=== PATIENT | male | born 1980 | race Two or more races ===

== ENCOUNTER 2021-08-07 23:13 | Inpatient (IN) | payer OTHER ==
[2021-08-08 00:30] LABS: #Eosinphils 0.1 10x3/uL (0.0-0.5); #Monocytes 0.5 10x3/uL (0.0-1.1); #Neutrophils 4.1 10x3/uL (1.5-8.4); %Basophils 0.5 % (0.0-2.0); %Eosinophils 2.1 % (0.0-6.0); %Lymphocytes 23.3 % (18.0-47.0); %Monocytes 7.6 % (0.0-10.0); %Neutrophils 65.2 % (40.0-75.0); Hemoglobin 12.6 g/dL (13.5-17.5); Mean Corpuscular HGB CONC 33.3 g/dL (32.0-36.0); Mean Corpuscular Hemoglobin 26.4 pg (27.0-33.0); Mean Corpuscular Volume 79.1 fl (81.2-95.1); Mean Platelet Volume 10.7 fl (7.4-10.4); Platelet Count 198 10x3/uL (150-450); Red Blood Cell (RBC) Count 4.78 10x6/uL (4.32-5.72); White Blood Cell (WBC) Count 6.3 10x3/uL (3.5-10.5)
[2021-08-08 00:43] LABS: ALT (SGPT) 11 U/L (8-55); AST (SGOT) 11 U/L (5-34); Albumin 3.7 g/dL (3.5-5.0); Alkaline Phosphatase 94 U/L (40-110); Anion Gap 17 mmol/L (10-20); BUN (Urea Nitrogen) 18 mg/dL (8.9-20.6); Bilirubin, Total 0.5 mg/dL (0.2-1.2); Calc. Creatinine Clearance 0 mL/min (70-130); Calcium 9.7 mg/dL (7.8-10.44); Carbon Dioxide 25 mmol/L (22-29); Chloride 97 mmol/L (98-107); Globulin 3.8 g/dL (2.4-3.5); Glucose 186 mg/dL (70-105); Lipase 22 U/L (8-78); Potassium 3.8 mmol/L (3.5-5.1); Protein, Total 7.5 g/dL (6.0-8.3); Sodium 135 mmol/L (136-145)
[2021-08-08 01:14] LABS: CKMB 9.8 ng/mL (0-6.6)
[2021-08-08] MEDS ORDERED: Labetalol HCl 100 MG/20 ML VIAL ONE (01:26)
[2021-08-08] MEDS ORDERED: Nitroglycerin 2% Ointment 1 INCH/1 GM Packet ONE (02:07)
[2021-08-08] MEDS ORDERED: cefTRIAXone\\ROCEPHIN 1 GM VIAL ONE (02:07)
[2021-08-08] MEDS ORDERED: Azithromycin 500 MG VIAL ONE (02:07)
[2021-08-08] MEDS ORDERED: Guaifenesin DM 100-10/5 ML UDCUP PO PRN (02:41)
[2021-08-08] MEDS ORDERED: Calcium Carbonate 500 MG ChewTAB PO PRN (02:41)
[2021-08-08] MEDS ORDERED: Senokot S 8.6-50 MG TAB PO PRN (02:41)
[2021-08-08] MEDS ORDERED: Ondansetron PF 4 MG/2 ML Vial IVP PRN (02:41)
[2021-08-08] MEDS ORDERED: Dextrose 5% in Water 1,000 ML IV PRN (02:52)
[2021-08-08] MEDS ORDERED: Dextrose 50% Abboject 50 ML SYRINGE SLOW IVP PRN (02:52)
[2021-08-08] MEDS ORDERED: Lactated Ringer's 500 ML IV SCH (03:00)
[2021-08-08 03:07] LABS: SARS-CoV-2 NAA Rapid Test Not Detected (NotDetected)
[2021-08-08] MEDS ORDERED: HYDROcodone/Acetaminophen 5/325 mg Tablet ONE (03:43)
[2021-08-08] MEDS ORDERED: methylPREDNISolone Sod Succ/PF 125 MG/2 ML VIAL IVP SCH (04:45)
[2021-08-08] MEDS ORDERED: Pantoprazole 40 MG VIAL IVP SCH (04:45)
[2021-08-08 04:51] LABS: Cardiac Risk 5.3 (Less than 4.5)
[2021-08-08 04:55] VITALS: BMI 43.5
[2021-08-08] MEDS: Labetalol HCl 100 MG/20 ML VIAL SLOW IVP PRN ×2 (05:16→17:30)
[2021-08-08 06:11] LABS: CKMB 6.7 ng/mL (0-6.6)
[2021-08-08] MEDS: Mometasone/Formoterol 200/5 60 PUFF INH SCH ×2 (08:00→18:42)
[2021-08-08] MEDS: Losartan Potassium 50 MG TAB PO SCH (08:14)
[2021-08-08] MEDS: Carvedilol 6.25 MG TAB PO SCH ×2 (08:14→17:22)
[2021-08-08] MEDS: Aspirin 81 mg Enteric Coated Tablet PO SCH (08:14)
[2021-08-08] MEDS: Benzonatate 100 MG CAP PO SCH ×3 (08:15→21:32)
[2021-08-08] MEDS: Enoxaparin Sodium 40 MG/0.4 ML SYRINGE SC SCH (08:15)
[2021-08-08] MEDS: Acetaminophen 325 MG TAB PO PRN ×2 (08:20→17:22)
[2021-08-08] MEDS ORDERED: Lantus 1000 UNITS/10 ML VIAL SC SCH (09:00)
[2021-08-08] MEDS ORDERED: Losartan Potassium 50 MG TAB PO SCH (09:00)
[2021-08-08 10:52] LABS: CKMB 6.5 ng/mL (0-6.6)
[2021-08-08] MEDS ORDERED: Gadobenate Dimeglumine 529 MG/1 ML (20ML VIAL) ONE (11:13)
[2021-08-08] MEDS: Lorazepam 2 MG/ML VIAL SLOW IVP PRN ×2 (11:33→12:29)
[2021-08-08 12:00] LABS: Hemoglobin A1c 11.4 % (4.0-6.0)
[2021-08-08] MEDS ORDERED: Electrolyte Replacement Protocol 1 EACH FS SCH (12:00)
[2021-08-08] MEDS: Atorvastatin Calcium 40 MG TAB PO SCH (21:32)
[2021-08-08] MEDS: HumaLOG 300 UNITS/3 ML VIAL SC PRN (21:33)
[2021-08-08 22:50] LABS: Legionella Urinary Ag Negative (Negative); Strep pneumo Urine Ag NEGATIVE (NEGATIVE)
[2021-08-09] MEDS: HumaLOG 300 UNITS/3 ML VIAL SC PRN ×4 (01:30→18:10)
[2021-08-09 04:17] LABS: Actual Bicarbonate (HCO3v) 29 mEq/L (22-28); Base Excess 2.9 mEq/L (-2.0 to +3.0); Calcium, Ionized (venous) 1.14 mmol/L (1.16-1.32); Chloride (VBG) 99 mmol/L (98-106); Hemoglobin (Hb) 12.7 g/dL (13.2-17.3); Potassium (VBG) 4.39 mmol/L (3.70-5.30); Puncture Site Other Site; RapidComm Collect By CSUC.CNC; Sodium 134.2 mmol/L (133-146); pH (venous) 7.39 (7.32-7.43)
[2021-08-09 05:07] LABS: ALT (SGPT) 6 U/L (8-55); AST (SGOT) 6 U/L (5-34); Albumin 3.3 g/dL (3.5-5.0); Alkaline Phosphatase 82 U/L (40-110); Anion Gap 15 mmol/L (10-20); BUN (Urea Nitrogen) 16 mg/dL (8.9-20.6); Bilirubin, Total 0.4 mg/dL (0.2-1.2); Calc. Creatinine Clearance 143 mL/min (70-130); Calcium 8.8 mg/dL (7.8-10.44); Carbon Dioxide 27 mmol/L (22-29); Chloride 97 mmol/L (98-107); Globulin 3.4 g/dL (2.4-3.5); Glucose 450 mg/dL (70-105); Magnesium 1.9 mg/dL (1.6-2.6); Phosphorus 4.3 mg/dL (2.3-4.7); Potassium 4.4 mmol/L (3.5-5.1); Protein, Total 6.7 g/dL (6.0-8.3); Sodium 135 mmol/L (136-145)
[2021-08-09] MEDS ORDERED: Magnesium 2 GM/50 ML(in water) 2 GM in Premix Bag 1 BAG IVPB SCH (05:30)
[2021-08-09] MEDS ORDERED: Lantus 1000 UNITS/10 ML VIAL SC SCH ×2 (09:00→21:00)
[2021-08-09] MEDS: Enoxaparin Sodium 40 MG/0.4 ML SYRINGE SC SCH (09:34)
[2021-08-09] MEDS: Aspirin 81 mg Enteric Coated Tablet PO SCH (09:35)
[2021-08-09] MEDS: Carvedilol 6.25 MG TAB PO SCH ×2 (09:36→16:31)
[2021-08-09] MEDS: Benzonatate 100 MG CAP PO SCH ×3 (09:36→22:14)
[2021-08-09] MEDS: Losartan Potassium 50 MG TAB PO SCH (09:36)
[2021-08-09] MEDS: Mometasone/Formoterol 200/5 60 PUFF INH SCH ×2 (09:38→22:12)
[2021-08-09] MEDS: Acetaminophen 325 MG TAB PO PRN ×2 (09:46→22:14)
[2021-08-09] MEDS: Atorvastatin Calcium 40 MG TAB PO SCH (22:14)
[2021-08-10] MEDS: HumaLOG 300 UNITS/3 ML VIAL SC PRN ×2 (01:26→12:08)
[2021-08-10 08:36] LABS: #Eosinphils 0.1 10x3/uL (0.0-0.5); #Monocytes 0.4 10x3/uL (0.0-1.1); #Neutrophils 2.3 10x3/uL (1.5-8.4); %Basophils 0.2 % (0.0-2.0); %Eosinophils 2.5 % (0.0-6.0); %Lymphocytes 35.8 % (18.0-47.0); %Monocytes 8.2 % (0.0-10.0); %Neutrophils 52.8 % (40.0-75.0); Hemoglobin 11.6 g/dL (13.5-17.5); Mean Corpuscular HGB CONC 32.8 g/dL (32.0-36.0); Mean Corpuscular Hemoglobin 26.7 pg (27.0-33.0); Mean Corpuscular Volume 81.4 fl (81.2-95.1); Mean Platelet Volume 11.1 fl (7.4-10.4); Platelet Count 180 10x3/uL (150-450); RBC Distribution Width 14.4 % (11.5-14.5); Red Blood Cell (RBC) Count 4.35 10x6/uL (4.32-5.72); White Blood Cell (WBC) Count 4.4 10x3/uL (3.5-10.5)
[2021-08-10 08:57] LABS: ALT (SGPT) 7 U/L (8-55); AST (SGOT) 9 U/L (5-34); Albumin 3.1 g/dL (3.5-5.0); Alkaline Phosphatase 70 U/L (40-110); Anion Gap 15 mmol/L (10-20); BUN (Urea Nitrogen) 14 mg/dL (8.9-20.6); Bilirubin, Total 0.5 mg/dL (0.2-1.2); Calc. Creatinine Clearance 256 mL/min (70-130); Calcium 8.8 mg/dL (7.8-10.44); Carbon Dioxide 28 mmol/L (22-29); Chloride 101 mmol/L (98-107); Glucose 153 mg/dL (70-105); Magnesium 1.7 mg/dL (1.6-2.6); Potassium 3.9 mmol/L (3.5-5.1); Protein, Total 6.1 g/dL (6.0-8.3); Sodium 140 mmol/L (136-145)
[2021-08-10] MEDS ORDERED: Lantus 1000 UNITS/10 ML VIAL SC SCH (09:00)
[2021-08-10] MEDS: Enoxaparin Sodium 40 MG/0.4 ML SYRINGE SC SCH (09:50)
[2021-08-10] MEDS: Aspirin 81 mg Enteric Coated Tablet PO SCH (09:50)
[2021-08-10] MEDS: Losartan Potassium 50 MG TAB PO SCH (09:51)
[2021-08-10] MEDS: Benzonatate 100 MG CAP PO SCH (09:51)
[2021-08-10] MEDS: Carvedilol 6.25 MG TAB PO SCH (09:53)
[2021-08-10] MEDS ORDERED: Magnesium 2 GM/50 ML(in water) 2 GM in Premix Bag 1 BAG IVPB SCH (10:00)
[2021-08-10] MEDS: Mometasone/Formoterol 200/5 60 PUFF INH SCH (11:34)
[2021-08-10] MEDS ORDERED: hydrALAZINE 25 MG TAB PO SCH (13:00)
[2021-08-10 15:51] VITALS: BP 137/68; TEMP 97.9
[2021-08-11 14:55] LABS: Campy jejuni + coli by PCR Negative (Negative); STEC Shiga Toxin 1+2 Negative (Negative); Salmonella spp. by PCR Negative (Negative); Shigella spp + EIEC by PCR Negative (Negative)
== END 2021-08-10 15:15 | disposition home or self-care (01) | DRG 74 ==
LOC: CSHERS 23:13 → CSHTELE 08-08 04:28 → OBSVTOIN 08-08 09:55
PROVIDERS: ADMIT Student in an Organized Health Care Education/Training Program; ATTEND Family Medicine
DX: E10.43 Type 1 diabetes mellitus with diabetic autonomic (poly)neuropathy (principal); Z68.41 Body mass index [BMI] 40.0-44.9, adult; E46 Unspecified protein-calorie malnutrition; J44.9 Chronic obstructive pulmonary disease, unspecified; E78.5 Hyperlipidemia, unspecified; E10.42 Type 1 diabetes mellitus with diabetic polyneuropathy; F41.9 Anxiety disorder, unspecified; G89.29 Other chronic pain; M19.90 Unspecified osteoarthritis, unspecified site; R77.8 Other specified abnormalities of plasma proteins; G47.33 Obstructive sleep apnea (adult) (pediatric); F43.10 Post-traumatic stress disorder, unspecified; K31.84 Gastroparesis; M79.7 Fibromyalgia; K21.9 Gastro-esophageal reflux disease without esophagitis; D50.9 Iron deficiency anemia, unspecified; E66.01 Morbid (severe) obesity due to excess calories; F40.240 Claustrophobia; I50.9 Heart failure, unspecified; I16.0 Hypertensive urgency; Z20.822 Contact with and (suspected) exposure to COVID-19; I11.0 Hypertensive heart disease with heart failure; Z88.8 Allergy status to other drugs, medicaments and biological substances; Z79.82 Long term (current) use of aspirin; Z86.711 Personal history of pulmonary embolism; Z79.84 Long term (current) use of oral hypoglycemic drugs; Z89.421 Acquired absence of other right toe(s); Z79.899 Other long term (current) drug therapy; Z79.4 Long term (current) use of insulin; Z90.49 Acquired absence of other specified parts of digestive tract
CPT/HCPCS: 36415; 36416; 71045; 72158; 80053; 80061; 82550; 82553; 82705; 82805; 83036; 83630; 83690; 83735; 83880; 84100; 84145; 84443; 84484; 85025; 85379; 87070; 87205; 87324; 87449; 87505; 87899; 93005; 93306; 94640; 94664; 94760; 96365; 96367; 96372; 96375; A9577; C9113; G0378; J0456; J0696; J1650; J1815; J2060; J2930; J3475; J7120; J7620

== ENCOUNTER 2021-08-26 19:51 | Inpatient (IN) | payer OTHER ==
[2021-08-26 21:44] LABS: #Eosinphils 0.1 10x3/uL (0.0-0.5); #Monocytes 0.6 10x3/uL (0.0-1.1); #Neutrophils 6.7 10x3/uL (1.5-8.4); %Basophils 0.2 % (0.0-2.0); %Eosinophils 0.9 % (0.0-6.0); %Lymphocytes 14.8 % (18.0-47.0); %Monocytes 6.6 % (0.0-10.0); %Neutrophils 76.9 % (40.0-75.0); Hemoglobin 12.6 g/dL (13.5-17.5); Mean Corpuscular HGB CONC 33.5 g/dL (32.0-36.0); Mean Corpuscular Hemoglobin 26.4 pg (27.0-33.0); Mean Corpuscular Volume 78.8 fl (81.2-95.1); Mean Platelet Volume 11.1 fl (7.4-10.4); Platelet Count 225 10x3/uL (150-450); RBC Distribution Width 13.5 % (11.5-14.5); Red Blood Cell (RBC) Count 4.77 10x6/uL (4.32-5.72); White Blood Cell (WBC) Count 8.7 10x3/uL (3.5-10.5)
[2021-08-26 22:03] LABS: ALT (SGPT) 46 U/L (8-55); AST (SGOT) 277 U/L (5-34); Albumin 3.7 g/dL (3.5-5.0); Alkaline Phosphatase 93 U/L (40-110); Anion Gap 16 mmol/L (10-20); BUN (Urea Nitrogen) 9 mg/dL (8.9-20.6); Bilirubin, Total 0.8 mg/dL (0.2-1.2); CK (CPK) 3172 U/L (30-200); Calc. Creatinine Clearance 0 mL/min (70-130); Calcium 9.2 mg/dL (7.8-10.44); Carbon Dioxide 27 mmol/L (22-29); Chloride 96 mmol/L (98-107); Estimated GFR 105; Globulin 3.5 g/dL (2.4-3.5); Glucose 311 mg/dL (70-105); Lipase 26 U/L (8-78); Magnesium 1.6 mg/dL (1.6-2.6); Potassium 4.2 mmol/L (3.5-5.1); Protein, Total 7.2 g/dL (6.0-8.3); Sodium 135 mmol/L (136-145)
[2021-08-26 22:05] LABS: SARS-CoV-2 NAA Rapid Test Not Detected (NotDetected)
[2021-08-26] MEDS ORDERED: Enoxaparin Sodium 100 MG/ML SYRINGE ONE (22:36)
[2021-08-26] MEDS ORDERED: Enoxaparin Sodium 30 MG/0.3 ML SYRINGE ONE (22:36)
[2021-08-26] MEDS ORDERED: Guaifenesin DM 100-10/5 ML UDCUP PO PRN (23:32)
[2021-08-26] MEDS ORDERED: Dextrose 5% in Water 1,000 ML IV PRN (23:32)
[2021-08-26] MEDS ORDERED: Acetaminophen 325 MG TAB PO PRN (23:32)
[2021-08-26] MEDS ORDERED: Calcium Carbonate 500 MG ChewTAB PO PRN (23:32)
[2021-08-26] MEDS ORDERED: hydrALAZINE 20 MG/ML VIAL SLOW IVP PRN (23:47)
[2021-08-26] MEDS ORDERED: Ketorolac Tromethamine 30 MG/ML VIAL ONE (23:57)
[2021-08-26] MEDS ORDERED: Furosemide 40 MG/4 ML VIAL ONE (23:57)
[2021-08-26] MEDS ORDERED: Pantoprazole 40 MG VIAL IVP SCH (23:59)
[2021-08-26] MEDS ORDERED: Carvedilol 6.25 MG TAB PO SCH (23:59)
[2021-08-27 02:19] VITALS: BMI 46.0
[2021-08-27] MEDS ORDERED: HYDROcodone/Acetaminophen 5/325 mg Tablet PO SCH (04:15)
[2021-08-27 04:29] LABS: #Eosinphils 0.1 10x3/uL (0.0-0.5); #Monocytes 0.7 10x3/uL (0.0-1.1); #Neutrophils 5.2 10x3/uL (1.5-8.4); %Basophils 0.3 % (0.0-2.0); %Eosinophils 0.8 % (0.0-6.0); %Lymphocytes 22.3 % (18.0-47.0); %Monocytes 8.8 % (0.0-10.0); %Neutrophils 67.2 % (40.0-75.0); Hemoglobin 11.2 g/dL (13.5-17.5); Mean Corpuscular HGB CONC 32.7 g/dL (32.0-36.0); Mean Corpuscular Hemoglobin 26.4 pg (27.0-33.0); Mean Corpuscular Volume 80.7 fl (81.2-95.1); Mean Platelet Volume 11.4 fl (7.4-10.4); Platelet Count 209 10x3/uL (150-450); RBC Distribution Width 13.4 % (11.5-14.5); Red Blood Cell (RBC) Count 4.24 10x6/uL (4.32-5.72); White Blood Cell (WBC) Count 7.7 10x3/uL (3.5-10.5)
[2021-08-27 04:41] LABS: ALT (SGPT) 45 U/L (8-55); AST (SGOT) 225 U/L (5-34); Albumin 3.1 g/dL (3.5-5.0); Alkaline Phosphatase 81 U/L (40-110); Anion Gap 14 mmol/L (10-20); BUN (Urea Nitrogen) 9 mg/dL (8.9-20.6); Bilirubin, Total 0.8 mg/dL (0.2-1.2); CK (CPK) 2621 U/L (30-200); CRP (Inflammatory) 7.28 mg/dL (= or < 0.5); Calc. Creatinine Clearance 207 mL/min (70-130); Calcium 8.4 mg/dL (7.8-10.44); Carbon Dioxide 27 mmol/L (22-29); Chloride 97 mmol/L (98-107); Estimated GFR 106; Globulin 3.1 g/dL (2.4-3.5); Glucose 348 mg/dL (70-105); Potassium 4.3 mmol/L (3.5-5.1); Protein, Total 6.2 g/dL (6.0-8.3); Sodium 134 mmol/L (136-145)
[2021-08-27 05:24] LABS: CKMB 24.4 ng/mL (0-6.6)
[2021-08-27] MEDS: HumaLOG 300 UNITS/3 ML VIAL SC PRN (05:35)
[2021-08-27] MEDS: Furosemide 20 MG/2 ML VIAL SLOW IVP SCH ×2 (05:35→13:41)
[2021-08-27] MEDS ORDERED: HYDROcodone/Acetaminophen 5/325 mg Tablet PO PRN (05:47)
[2021-08-27] MEDS ORDERED: Mometasone/Formoterol 60 PUFF AER INH SCH (06:30)
[2021-08-27] MEDS ORDERED: Enoxaparin Sodium 40 MG/0.4 ML SYRINGE SC SCH (09:00)
[2021-08-27] MEDS ORDERED: Pantoprazole 40 MG VIAL IVP SCH (09:00)
[2021-08-27] MEDS: Aspirin 325 mg Enteric Coated Tablet PO SCH ×3 (09:36→20:42)
[2021-08-27] MEDS: Pregabalin 25 MG CAP PO SCH ×2 (09:38→20:44)
[2021-08-27] MEDS: Carvedilol 6.25 MG TAB PO SCH ×2 (09:38→16:32)
[2021-08-27] MEDS: Colchicine 0.6 MG TAB PO SCH ×2 (09:39→20:42)
[2021-08-27] MEDS: Losartan Potassium 50 MG TAB PO SCH (09:39)
[2021-08-27] MEDS: Lantus 1000 UNITS/10 ML VIAL SC SCH ×2 (09:40→20:49)
[2021-08-27 09:55] LABS: CKMB 19.9 ng/mL (0-6.6)
[2021-08-27] MEDS ORDERED: Diazepam 5 MG TAB PO PRN (10:11)
[2021-08-27] MEDS ORDERED: tiZANidine HCl 4 MG TAB PO PRN (10:11)
[2021-08-27] MEDS: guaiFENesin/DM ER PO SCH ×2 (11:33→20:43)
[2021-08-27] MEDS: HYDROmorphone 2 MG TAB PO PRN ×2 (11:52→20:42)
[2021-08-27] MEDS: Lidocaine 5% Patch TD SCH (11:52)
[2021-08-27] MEDS: Ondansetron PF 4 MG/2 ML Vial IVP PRN ×2 (11:52→21:45)
[2021-08-27 12:58] LABS: Hemoglobin A1c 11.9 % (4.0-6.0)
[2021-08-27] MEDS ORDERED: Communication Order-Pharmacy FS SCH (13:00)
[2021-08-27 13:29] LABS: HBCM Index 0.06 S/CO (0-0.79); HBSAg Index 0.32 S/CO (0-0.99); Hep A IgM AB Non-Reactive (NonReactive); Hep A IgM S/CO 0.29 S/CO (0-0.79); Hep B Surf Ag Non-Reactive S/CO (NonReactive); Hep C IgG Ab Non-Reactive (NonReactive); Hep C Index 0.12 S/CO (0-0.79); Hepatitis B Core IgM Abs Non-Reactive (NonReactive)
[2021-08-27] MEDS: HumaLOG 300 UNITS/3 ML VIAL SC SCH (16:44)
[2021-08-27] MEDS ORDERED: GABAPENTIN PO SCH (21:00)
[2021-08-27] MEDS: Mometasone/Formoterol 200/5 60 PUFF INH SCH (21:05)
[2021-08-27] MEDS: Transdermal Patch Removal TOP SCH (23:25)
[2021-08-28] MEDS: HumaLOG 300 UNITS/3 ML VIAL SC PRN (00:13)
[2021-08-28] MEDS: HYDROmorphone 2 MG TAB PO PRN (01:22)
[2021-08-28 05:10] LABS: ALT (SGPT) 36 U/L (8-55); AST (SGOT) 77 U/L (5-34); Alkaline Phosphatase 95 U/L (40-110); Anion Gap 16 mmol/L (10-20); BUN (Urea Nitrogen) 15 mg/dL (8.9-20.6); Bilirubin, Total 0.7 mg/dL (0.2-1.2); CRP (Inflammatory) 18.29 mg/dL (= or < 0.5); Calc. Creatinine Clearance 113 mL/min (70-130); Calcium 8.5 mg/dL (7.8-10.44); Carbon Dioxide 26 mmol/L (22-29); Chloride 97 mmol/L (98-107); Estimated GFR 51; Globulin 3.1 g/dL (2.4-3.5); Glucose 151 mg/dL (70-105); Magnesium 1.8 mg/dL (1.6-2.6); Potassium 4.4 mmol/L (3.5-5.1); Protein, Total 6.1 g/dL (6.0-8.3); Sodium 135 mmol/L (136-145)
[2021-08-28 05:22] LABS: #Eosinphils 0.1 10x3/uL (0.0-0.5); #Monocytes 0.9 10x3/uL (0.0-1.1); %Basophils 0.1 % (0.0-2.0); %Eosinophils 1.1 % (0.0-6.0); %Lymphocytes 16.1 % (18.0-47.0); %Monocytes 10.3 % (0.0-10.0); Hemoglobin 10.4 g/dL (13.5-17.5); Mean Corpuscular HGB CONC 32.5 g/dL (32.0-36.0); Mean Corpuscular Hemoglobin 26.7 pg (27.0-33.0); Mean Corpuscular Volume 82.1 fl (81.2-95.1); Mean Platelet Volume 11.7 fl (7.4-10.4); Platelet Count 206 10x3/uL (150-450); RBC Distribution Width 13.5 % (11.5-14.5); White Blood Cell (WBC) Count 8.3 10x3/uL (3.5-10.5)
[2021-08-28] MEDS: Furosemide 20 MG/2 ML VIAL SLOW IVP SCH ×3 (05:39→15:35)
[2021-08-28] MEDS ORDERED: Sodium Chloride 0.9% 250 ML 250 ML IVPB SCH ×2 (05:45→06:45)
[2021-08-28] MEDS ORDERED: Sodium Chloride 0.9% 1,000 ML IV SCH (06:00)
[2021-08-28] MEDS: Mometasone/Formoterol 200/5 60 PUFF INH SCH ×2 (06:51→19:05)
[2021-08-28] MEDS ORDERED: Nitroglycerin 50 MG/250 ML BOT 250 ML ONE (07:28)
[2021-08-28] MEDS ORDERED: Heparin 10,000 UNITS/ 10 ML VIAL ONE (07:28)
[2021-08-28] MEDS ORDERED: Adenosine 6 MG/2 ML VIAL ONE (07:29)
[2021-08-28] MEDS ORDERED: Lidocaine 1% 20 ML MDV ONE (07:31)
[2021-08-28] MEDS ORDERED: Acetylcysteine 800 MG/4 ML VIAL ONE (07:57)
[2021-08-28] MEDS ORDERED: Iopamidol 300 61% 100 ML VIAL FS ONE (08:00)
[2021-08-28] MEDS ORDERED: Verapamil 5 MG/2 ML VIAL ONE (10:08)
[2021-08-28] MEDS ORDERED: Fentanyl 100 MCG/2 ML VIAL ONE (10:08)
[2021-08-28] MEDS ORDERED: Midazolam HCl 2 mg/2 ml Vial ONE (10:09)
[2021-08-28] MEDS: HumaLOG 300 UNITS/3 ML VIAL SC SCH ×3 (10:56→17:44)
[2021-08-28] MEDS: Carvedilol 6.25 MG TAB PO SCH ×2 (10:56→15:35)
[2021-08-28] MEDS: Aspirin 325 mg Enteric Coated Tablet PO SCH (10:57)
[2021-08-28] MEDS: Colchicine 0.6 MG TAB PO SCH (10:57)
[2021-08-28] MEDS: guaiFENesin/DM ER PO SCH (10:58)
[2021-08-28] MEDS: Losartan Potassium 50 MG TAB PO SCH ×2 (11:14→15:35)
[2021-08-28] MEDS: Pregabalin 25 MG CAP PO SCH (11:14)
[2021-08-28] MEDS: Aripiprazole 10 MG TAB PO SCH ×2 (11:16→15:35)
[2021-08-28] MEDS: Lantus 1000 UNITS/10 ML VIAL SC SCH (11:16)
[2021-08-28] MEDS: DULoxetine 30 MG CAP PO SCH ×2 (11:16→15:35)
[2021-08-28] MEDS ORDERED: TICAGRELOR 90 MG TABLET ONE (11:18)
[2021-08-28 14:16] LABS: ANA Symphony (Qualitative) Negative (Negative); ANA Symphony (Quantitative) 0.3 Ratio (< 0.7 Negative); dsDNA IgG Antibody 0.8 IU/mL (<10 Negative)
[2021-08-28 14:51] LABS: CCP IgG Antibody 1.8 EliAU/mL (<7 Negative); EliA RAS New Method **** NEW METHOD ****; Rheumatoid Factor IgA Antibody 7.7 IU/mL (<14 Negative); Rheumatoid Factor IgM Antibody 0.8 IU/mL (<3.5 Negative)
[2021-08-28] MEDS: Lidocaine 5% Patch TD SCH (15:35)
[2021-08-28] MEDS: Ondansetron PF 4 MG/2 ML Vial IVP PRN (15:36)
[2021-08-28] MEDS ORDERED: Sodium Chloride 0.9% 500 ML IV SCH (19:45)
[2021-08-28] MEDS: GABAPENTIN PO SCH (19:50)
[2021-08-28] MEDS ORDERED: Pregabalin 75 MG CAP PO SCH (21:00)
[2021-08-28] MEDS ORDERED: Gabapentin 100 MG CAP PO SCH (21:00)
[2021-08-28 21:09] LABS: #Monocytes 0.5 10x3/uL (0.0-1.1); #Neutrophils 6.7 10x3/uL (1.5-8.4); %Basophils 0.1 % (0.0-2.0); %Eosinophils 0.1 % (0.0-6.0); %Lymphocytes 5.9 % (18.0-47.0); %Monocytes 6.9 % (0.0-10.0); %Neutrophils 86.5 % (40.0-75.0); Actual Bicarbonate (HCO3v) 27 mEq/L (22-28); Base Excess 2.6 mEq/L (-2.0 to +3.0); Calcium, Ionized (venous) 1.08 mmol/L (1.16-1.32); Chloride (VBG) 102 mmol/L (98-106); Critical Notified By: CP.PH; Hemoglobin 10.2 g/dL (13.5-17.5); Hemoglobin (Hb) 11.3 g/dL (13.2-17.3); Mean Corpuscular Hemoglobin 26.2 pg (27.0-33.0); Mean Corpuscular Volume 81.8 fl (81.2-95.1); Mean Platelet Volume 11.3 fl (7.4-10.4); Platelet Count 181 10x3/uL (150-450); Potassium (VBG) 3.99 mmol/L (3.70-5.30); Puncture Site Other Site; RBC Distribution Width 13.6 % (11.5-14.5); Sodium 137.2 mmol/L (133-146); White Blood Cell (WBC) Count 7.8 10x3/uL (3.5-10.5); pH (venous) 7.43 (7.32-7.43)
[2021-08-28 21:33] LABS: ALT (SGPT) 32 U/L (8-55); AST (SGOT) 72 U/L (5-34); Albumin 3.2 g/dL (3.5-5.0); Alkaline Phosphatase 135 U/L (40-110); Anion Gap 3 mmol/L (10-20); BUN (Urea Nitrogen) 20 mg/dL (8.9-20.6); Bilirubin, Total 0.7 mg/dL (0.2-1.2); Calc. Creatinine Clearance 135 mL/min (70-130); Calcium 8.8 mg/dL (7.8-10.44); Carbon Dioxide 23 mmol/L (22-29); Chloride 88 mmol/L (98-107); Estimated GFR 64; Globulin 3.1 g/dL (2.4-3.5); Glucose 62 mg/dL (70-105); Magnesium 1.7 mg/dL (1.6-2.6); Potassium 3.3 mmol/L (3.5-5.1); Protein, Total 6.3 g/dL (6.0-8.3); Sodium 111 mmol/L (136-145)
[2021-08-28] MEDS: Dextrose 50% Abboject 50 ML SYRINGE SLOW IVP PRN ×2 (21:50→22:53)
[2021-08-28 22:24] LABS: Bilirubin Neg (Negative); Blood, Urine Negative (Negative); Glucose, Urine (Dipstick) Normal (Negative); Ketone, Urine Negative (Negative); Leukocyte Negative (Negative); Nitrite Negative (Negative); Protein, Urine (Dipstick) 30 mg/dl (Neg-Trace); Urobilinogen Normal mg/dL (Less than 2)
[2021-08-28 22:25] LABS: Clarity Clear (Clear)
[2021-08-28 22:26] LABS: Urine Culture Reflex No No
[2021-08-28 22:36] LABS: Anion Gap 17 mmol/L (10-20); BUN (Urea Nitrogen) 21 mg/dL (8.9-20.6); Calc. Creatinine Clearance 137 mL/min (70-130); Calcium 8.7 mg/dL (7.8-10.44); Carbon Dioxide 22 mmol/L (22-29); Chloride 100 mmol/L (98-107); Estimated GFR 65; Glucose 118 mg/dL (70-105); Potassium 4.3 mmol/L (3.5-5.1); Sodium 135 mmol/L (136-145)
[2021-08-28 22:40] LABS: RBC/HPF 0-3 HPF (0-3); Squamous Epithelial None Seen HPF (0-3); WBC/HPF None Seen HPF (0-3)
[2021-08-28 22:41] LABS: Bacteria/HPF None Seen HPF (None Seen)
[2021-08-28] MEDS: Piperacillin/Tazobactam 3.375 GM in Sodium Chloride 0.9% 100 ML IVPB SCH (22:55)
[2021-08-28 22:57] LABS: HIV (1/2) Antibody/Antigen Non-Reactive (NonReactive); HIV 1/2 INDEX 0.13 S/CO (<1.00)
[2021-08-28 23:01] LABS: Troponin I 103.767 ng/mL (< 0.028)
[2021-08-28] MEDS ORDERED: Magnesium Sulfate/D5W 1 GM/100 ML BAG IVPB SCH (23:15)
[2021-08-28] MEDS: Transdermal Patch Removal TOP SCH (23:20)
[2021-08-29] MEDS: Lantus 1000 UNITS/10 ML VIAL SC SCH (00:17)
[2021-08-29] MEDS: Atorvastatin Calcium 40 MG TAB PO SCH ×2 (00:27→21:30)
[2021-08-29] MEDS: TICAGRELOR 90 MG TABLET PO SCH ×3 (00:27→21:30)
[2021-08-29] MEDS: Dextrose 50% Abboject 50 ML SYRINGE SLOW IVP PRN (01:10)
[2021-08-29] MEDS: Piperacillin/Tazobactam 3.375 GM in Sodium Chloride 0.9% 100 ML IVPB SCH (05:12)
[2021-08-29] MEDS ORDERED: Sodium Chloride 0.9% 1,000 ML IV SCH (06:00)
[2021-08-29 06:12] LABS: ALT (SGPT) 30 U/L (8-55); AST (SGOT) 54 U/L (5-34); Alkaline Phosphatase 129 U/L (40-110); Anion Gap 16 mmol/L (10-20); BUN (Urea Nitrogen) 21 mg/dL (8.9-20.6); Bilirubin, Total 0.8 mg/dL (0.2-1.2); Calc. Creatinine Clearance 164 mL/min (70-130); Calcium 8.4 mg/dL (7.8-10.44); Carbon Dioxide 24 mmol/L (22-29); Chloride 101 mmol/L (98-107); Estimated GFR 80; Globulin 3.2 g/dL (2.4-3.5); Glucose 122 mg/dL (70-105); Magnesium 2.1 mg/dL (1.6-2.6); Potassium 4.6 mmol/L (3.5-5.1); Protein, Total 6.2 g/dL (6.0-8.3); Sodium 136 mmol/L (136-145)
[2021-08-29 06:27] LABS: #Monocytes 0.8 10x3/uL (0.0-1.1); #Neutrophils 7.1 10x3/uL (1.5-8.4); %Basophils 0.1 % (0.0-2.0); %Eosinophils 0.1 % (0.0-6.0); %Lymphocytes 7.9 % (18.0-47.0); %Monocytes 9.5 % (0.0-10.0); %Neutrophils 81.9 % (40.0-75.0); Hemoglobin 9.9 g/dL (13.5-17.5); Mean Corpuscular HGB CONC 32.4 g/dL (32.0-36.0); Mean Corpuscular Hemoglobin 26.2 pg (27.0-33.0); Mean Platelet Volume 11.4 fl (7.4-10.4); Platelet Count 187 10x3/uL (150-450); RBC Distribution Width 13.7 % (11.5-14.5); Red Blood Cell (RBC) Count 3.78 10x6/uL (4.32-5.72); White Blood Cell (WBC) Count 8.7 10x3/uL (3.5-10.5)
[2021-08-29] MEDS: Mometasone/Formoterol 200/5 60 PUFF INH SCH ×2 (06:48→13:06)
[2021-08-29] MEDS ORDERED: Lisinopril 2.5 MG TAB PO SCH (09:00)
[2021-08-29] MEDS: Aspirin Chewable 81 MG TAB PO SCH (09:11)
[2021-08-29] MEDS: Colchicine 0.6 MG TAB PO SCH ×2 (09:11→21:30)
[2021-08-29] MEDS: Carvedilol 6.25 MG TAB PO SCH ×2 (09:11→16:15)
[2021-08-29] MEDS: Ondansetron PF 4 MG/2 ML Vial IVP PRN (09:20)
[2021-08-29] MEDS ORDERED: Aripiprazole 10 MG TAB PO SCH (11:45)
[2021-08-29] MEDS: Lidocaine 5% Patch TD SCH (12:26)
[2021-08-29 12:27] LABS: Hemoglobin A1c 11.2 % (4.0-6.0)
[2021-08-29] MEDS ORDERED: Furosemide 40 MG TAB PO SCH (13:15)
[2021-08-29] MEDS ORDERED: Potassium Chloride 10 MEQ TAB PO SCH (13:15)
[2021-08-29] MEDS: Transdermal Patch Removal TOP SCH ×2 (23:48→23:50)
[2021-08-30] MEDS: HumaLOG 300 UNITS/3 ML VIAL SC PRN ×3 (00:43→21:00)
[2021-08-30 05:26] LABS: #Monocytes 0.9 10x3/uL (0.0-1.1); #Neutrophils 6.4 10x3/uL (1.5-8.4); %Eosinophils 0.5 % (0.0-6.0); %Lymphocytes 10.7 % (18.0-47.0); %Monocytes 10.3 % (0.0-10.0); %Neutrophils 77.9 % (40.0-75.0); Hemoglobin 9.9 g/dL (13.5-17.5); Mean Corpuscular HGB CONC 32.9 g/dL (32.0-36.0); Mean Corpuscular Hemoglobin 26.4 pg (27.0-33.0); Mean Corpuscular Volume 80.3 fl (81.2-95.1); Mean Platelet Volume 11.2 fl (7.4-10.4); Platelet Count 228 10x3/uL (150-450); RBC Distribution Width 13.9 % (11.5-14.5); Red Blood Cell (RBC) Count 3.75 10x6/uL (4.32-5.72); White Blood Cell (WBC) Count 8.3 10x3/uL (3.5-10.5)
[2021-08-30 05:41] LABS: ALT (SGPT) 27 U/L (8-55); AST (SGOT) 26 U/L (5-34); Albumin 2.9 g/dL (3.5-5.0); Alkaline Phosphatase 128 U/L (40-110); Anion Gap 15 mmol/L (10-20); BUN (Urea Nitrogen) 23 mg/dL (8.9-20.6); Bilirubin, Total 0.7 mg/dL (0.2-1.2); Calc. Creatinine Clearance 180 mL/min (70-130); Calcium 8.6 mg/dL (7.8-10.44); Carbon Dioxide 26 mmol/L (22-29); Chloride 99 mmol/L (98-107); Estimated GFR 90; Globulin 3.4 g/dL (2.4-3.5); Glucose 239 mg/dL (70-105); Potassium 4.3 mmol/L (3.5-5.1); Protein, Total 6.3 g/dL (6.0-8.3); Sodium 136 mmol/L (136-145)
[2021-08-30] MEDS: Ondansetron PF 4 MG/2 ML Vial IVP PRN (06:18)
[2021-08-30] MEDS ORDERED: Furosemide 40 MG TAB PO SCH (07:30)
[2021-08-30] MEDS ORDERED: traMADol HCl 50 MG TAB PO PRN (08:24)
[2021-08-30] MEDS ORDERED: tiZANidine HCl 4 MG TAB PO PRN (08:25)
[2021-08-30] MEDS: Carvedilol 6.25 MG TAB PO SCH (08:44)
[2021-08-30] MEDS: Potassium Chloride 10 MEQ TAB PO SCH (08:44)
[2021-08-30] MEDS: Gabapentin 100 MG CAP PO SCH ×3 (08:44→23:06)
[2021-08-30] MEDS: Colchicine 0.6 MG TAB PO SCH (08:45)
[2021-08-30] MEDS: Aspirin Chewable 81 MG TAB PO SCH (08:45)
[2021-08-30] MEDS: TICAGRELOR 90 MG TABLET PO SCH ×2 (08:47→20:55)
[2021-08-30] MEDS ORDERED: Losartan Potassium 50 MG TAB PO SCH (09:00)
[2021-08-30] MEDS ORDERED: Pregabalin 75 MG CAP PO SCH (09:00)
[2021-08-30] MEDS ORDERED: DULoxetine 30 MG CAP PO SCH (09:00)
[2021-08-30] MEDS: Mometasone/Formoterol 200/5 60 PUFF INH SCH ×2 (10:24→19:15)
[2021-08-30] MEDS: Lidocaine 5% Patch TD SCH (12:02)
[2021-08-30] MEDS ORDERED: Sodium Chloride 0.9% 500 ML IV SCH (14:45)
[2021-08-30 15:46] LABS: Actual Bicarbonate (HCO3a) 24.6 mEq/L (22-28); Base Excess (BEa) -0.9 mEq/L (-2.0 to +3.0); CO2 Tension 44.3 mmHg (35.0-45.0); Calcium, Ionized (arterial) 1.13 mmol/L (1.12-1.30); Carboxyhemoglobin (COHb) 0.4 gm% (0.0-3.0); Hemoglobin (Hb) 10.5 g/dL (14.0-18.0); O2 Tension (PaO2), arterial 54.3 mmHg (80.0-100.0); Potassium - ABG Lab 5.3 mmol/L (3.70-5.30); Puncture Site RRA; pH, Arterial 7.36 (7.35-7.45)
[2021-08-30 15:52] LABS: ALV-art Gradient 118.485 mmHg (0-20)
[2021-08-30] MEDS: Carvedilol 3.125 MG TAB PO SCH (18:23)
[2021-08-30] MEDS: Atorvastatin Calcium 40 MG TAB PO SCH (20:54)
[2021-08-30] MEDS: Pregabalin 75 MG CAP PO SCH (23:07)
[2021-08-31] MEDS: Transdermal Patch Removal TOP SCH ×2 (00:08→23:43)
[2021-08-31] MEDS: HumaLOG 300 UNITS/3 ML VIAL SC PRN ×5 (00:18→23:47)
[2021-08-31 05:04] LABS: #Monocytes 0.6 10x3/uL (0.0-1.1); #Neutrophils 4.2 10x3/uL (1.5-8.4); %Basophils 0.3 % (0.0-2.0); %Eosinophils 0.7 % (0.0-6.0); %Lymphocytes 16.5 % (18.0-47.0); %Monocytes 10.6 % (0.0-10.0); %Neutrophils 71.4 % (40.0-75.0); Hemoglobin 10.4 g/dL (13.5-17.5); Mean Corpuscular HGB CONC 32.6 g/dL (32.0-36.0); Mean Corpuscular Hemoglobin 26.3 pg (27.0-33.0); Mean Corpuscular Volume 80.6 fl (81.2-95.1); Mean Platelet Volume 11.7 fl (7.4-10.4); Platelet Count 250 10x3/uL (150-450); RBC Distribution Width 14.2 % (11.5-14.5); Red Blood Cell (RBC) Count 3.96 10x6/uL (4.32-5.72); White Blood Cell (WBC) Count 5.9 10x3/uL (3.5-10.5)
[2021-08-31 05:53] LABS: ALT (SGPT) 359 U/L (8-55); AST (SGOT) 798 U/L (5-34); Albumin 3.2 g/dL (3.5-5.0); Alkaline Phosphatase 219 U/L (40-110); Anion Gap 12 mmol/L (10-20); BUN (Urea Nitrogen) 32 mg/dL (8.9-20.6); Bilirubin, Total 0.6 mg/dL (0.2-1.2); Calc. Creatinine Clearance 102 mL/min (70-130); Carbon Dioxide 28 mmol/L (22-29); Chloride 97 mmol/L (98-107); Estimated GFR 45; Globulin 3.5 g/dL (2.4-3.5); Glucose 214 mg/dL (70-105); Magnesium 2.1 mg/dL (1.6-2.6); Potassium 4.3 mmol/L (3.5-5.1); Protein, Total 6.7 g/dL (6.0-8.3); Sodium 133 mmol/L (136-145)
[2021-08-31] MEDS: Mometasone/Formoterol 200/5 60 PUFF INH SCH ×2 (07:41→19:20)
[2021-08-31] MEDS: TICAGRELOR 90 MG TABLET PO SCH ×3 (08:29→21:09)
[2021-08-31] MEDS: Pregabalin 75 MG CAP PO SCH ×2 (08:31→11:44)
[2021-08-31] MEDS: Gabapentin 100 MG CAP PO SCH (08:31)
[2021-08-31] MEDS: Aspirin Chewable 81 MG TAB PO SCH (11:42)
[2021-08-31] MEDS: Potassium Chloride 10 MEQ TAB PO SCH (11:42)
[2021-08-31] MEDS: DULoxetine 30 MG CAP PO SCH (11:42)
[2021-08-31] MEDS: Carvedilol 3.125 MG TAB PO SCH ×2 (11:42→18:11)
[2021-08-31] MEDS: Lidocaine 5% Patch TD SCH (11:46)
[2021-08-31 19:57] LABS: Bilirubin Neg (Negative); Blood, Urine 25 (Negative); Clarity Clear (Clear); Glucose, Urine (Dipstick) Normal (Negative); Ketone, Urine 15 mg/dL (Negative); Leukocyte Negative (Negative); Nitrite Negative (Negative); Protein, Urine (Dipstick) 100 mg/dl (Neg-Trace); Specific Gravity, Urine 1.015 (1.002-1.036); Urobilinogen Normal mg/dL (Less than 2)
[2021-08-31 19:58] LABS: Urine Culture Reflex No No
[2021-08-31 20:06] LABS: Bacteria/HPF 1+ HPF (None Seen); RBC/HPF 0-3 HPF (0-3); Squamous Epithelial 0-3 HPF (0-3); WBC/HPF 0-3 HPF (0-3)
[2021-08-31] MEDS: Atorvastatin Calcium 40 MG TAB PO SCH (21:09)
[2021-08-31] MEDS: Ondansetron PF 4 MG/2 ML Vial IVP PRN (23:44)
[2021-09-01 05:07] LABS: Hemoglobin 10.9 g/dL (13.5-17.5); Mean Corpuscular HGB CONC 33.1 g/dL (32.0-36.0); Mean Corpuscular Hemoglobin 26.3 pg (27.0-33.0); Mean Corpuscular Volume 79.3 fl (81.2-95.1); Mean Platelet Volume 11.5 fl (7.4-10.4); Platelet Count 268 10x3/uL (150-450); RBC Distribution Width 13.9 % (11.5-14.5); Red Blood Cell (RBC) Count 4.15 10x6/uL (4.32-5.72); White Blood Cell (WBC) Count 10.6 10x3/uL (3.5-10.5)
[2021-09-01 05:22] LABS: MDiff Complete? YES
[2021-09-01 05:26] LABS: Band 25 % (5-11); Eosinophils 1 % (0-10); Lymphocytes 8 % (21-51); Monocytes 8 % (0-10); Neutrophil 58 % (42-75)
[2021-09-01 05:27] LABS: Platelet Morphology Comment Appears Adequate
[2021-09-01] MEDS: HumaLOG 300 UNITS/3 ML VIAL SC PRN ×5 (05:27→20:58)
[2021-09-01 05:28] LABS: RBC Morphology Normal
[2021-09-01 05:38] LABS: ALT (SGPT) 273 U/L (8-55); AST (SGOT) 164 U/L (5-34); Alkaline Phosphatase 223 U/L (40-110); Anion Gap 15 mmol/L (10-20); BUN (Urea Nitrogen) 23 mg/dL (8.9-20.6); Bilirubin, Total 0.7 mg/dL (0.2-1.2); Calc. Creatinine Clearance 148 mL/min (70-130); Calcium 8.8 mg/dL (7.8-10.44); Carbon Dioxide 27 mmol/L (22-29); Chloride 99 mmol/L (98-107); Estimated GFR 71; Globulin 3.6 g/dL (2.4-3.5); Glucose 240 mg/dL (70-105); Magnesium 1.9 mg/dL (1.6-2.6); Potassium 4.2 mmol/L (3.5-5.1); Protein, Total 6.6 g/dL (6.0-8.3); Sodium 137 mmol/L (136-145)
[2021-09-01] MEDS: Mometasone/Formoterol 200/5 60 PUFF INH SCH ×2 (07:33→19:40)
[2021-09-01] MEDS: Carvedilol 3.125 MG TAB PO SCH (08:23)
[2021-09-01] MEDS: Potassium Chloride 10 MEQ TAB PO SCH (08:23)
[2021-09-01] MEDS: Aspirin Chewable 81 MG TAB PO SCH (08:23)
[2021-09-01] MEDS: DULoxetine 30 MG CAP PO SCH (08:23)
[2021-09-01] MEDS: TICAGRELOR 90 MG TABLET PO SCH ×2 (08:23→21:40)
[2021-09-01] MEDS: Ondansetron PF 4 MG/2 ML Vial IVP PRN ×2 (08:28→22:04)
[2021-09-01] MEDS: Lidocaine 5% Patch TD SCH ×2 (11:26→11:27)
[2021-09-01] MEDS ORDERED: Lantus 1000 UNITS/10 ML VIAL SC SCH (11:30)
[2021-09-01 12:54] LABS: Actual Bicarbonate (HCO3a) 31.5 mEq/L (22-28); Base Excess (BEa) 6.3 mEq/L (-2.0 to +3.0); CO2 Tension 48.6 mmHg (35.0-45.0); Calcium, Ionized (arterial) 1.17 mmol/L (1.12-1.30); Carboxyhemoglobin (COHb) 0.3 gm% (0.0-3.0); Hemoglobin (Hb) 10.9 g/dL (14.0-18.0); Potassium - ABG Lab 3.9 mmol/L (3.70-5.30); Puncture Site RRA; pH, Arterial 7.43 (7.35-7.45)
[2021-09-01] MEDS: Carvedilol 6.25 MG TAB PO SCH (17:11)
[2021-09-01] MEDS: Loperamide HCl 1 MG/7.5 ML UDCUP PO PRN ×2 (18:21→21:41)
[2021-09-01] MEDS: Atorvastatin Calcium 40 MG TAB PO SCH (21:40)
[2021-09-02] MEDS: Transdermal Patch Removal TOP SCH (00:27)
[2021-09-02] MEDS: HumaLOG 300 UNITS/3 ML VIAL SC PRN ×2 (05:09→12:33)
[2021-09-02 05:45] LABS: #Eosinphils 0.2 10x3/uL (0.0-0.5); #Monocytes 0.7 10x3/uL (0.0-1.1); #Neutrophils 4.2 10x3/uL (1.5-8.4); %Basophils 0.2 % (0.0-2.0); %Eosinophils 2.6 % (0.0-6.0); %Lymphocytes 16.9 % (18.0-47.0); %Monocytes 11.5 % (0.0-10.0); %Neutrophils 68.1 % (40.0-75.0); Hemoglobin 10.3 g/dL (13.5-17.5); Mean Corpuscular HGB CONC 32.1 g/dL (32.0-36.0); Mean Corpuscular Hemoglobin 25.9 pg (27.0-33.0); Mean Corpuscular Volume 80.7 fl (81.2-95.1); Mean Platelet Volume 11.5 fl (7.4-10.4); Platelet Count 264 10x3/uL (150-450); RBC Distribution Width 13.8 % (11.5-14.5); Red Blood Cell (RBC) Count 3.98 10x6/uL (4.32-5.72); White Blood Cell (WBC) Count 6.1 10x3/uL (3.5-10.5)
[2021-09-02 05:55] LABS: ALT (SGPT) 272 U/L (8-55); AST (SGOT) 148 U/L (5-34); Albumin 2.7 g/dL (3.5-5.0); Alkaline Phosphatase 189 U/L (40-110); Anion Gap 11 mmol/L (10-20); BUN (Urea Nitrogen) 14 mg/dL (8.9-20.6); Bilirubin, Total 0.6 mg/dL (0.2-1.2); Calc. Creatinine Clearance 165 mL/min (70-130); Calcium 8.6 mg/dL (7.8-10.44); Carbon Dioxide 32 mmol/L (22-29); Chloride 99 mmol/L (98-107); Estimated GFR 81; Globulin 3.5 g/dL (2.4-3.5); Glucose 225 mg/dL (70-105); Magnesium 1.9 mg/dL (1.6-2.6); Potassium 3.9 mmol/L (3.5-5.1); Protein, Total 6.2 g/dL (6.0-8.3); Sodium 138 mmol/L (136-145)
[2021-09-02] MEDS: Mometasone/Formoterol 200/5 60 PUFF INH SCH (07:21)
[2021-09-02] MEDS ORDERED: Enoxaparin Sodium 40 MG/0.4 ML SYRINGE SC SCH (09:00)
[2021-09-02] MEDS: Potassium Chloride 10 MEQ TAB PO SCH (09:46)
[2021-09-02] MEDS: Aspirin Chewable 81 MG TAB PO SCH (09:46)
[2021-09-02] MEDS: Carvedilol 6.25 MG TAB PO SCH (09:48)
[2021-09-02] MEDS: TICAGRELOR 90 MG TABLET PO SCH (09:48)
[2021-09-02] MEDS: DULoxetine 30 MG CAP PO SCH (09:49)
[2021-09-02] MEDS: Ondansetron PF 4 MG/2 ML Vial IVP PRN (09:56)
[2021-09-02 12:15] VITALS: TEMP 97.7
[2021-09-02 12:28] VITALS: BP 105/74
[2021-09-02] MEDS: Lidocaine 5% Patch TD SCH (12:33)
== END 2021-09-02 16:31 | disposition home or self-care (01) | DRG 246 ==
LOC: CSHERS 19:51 → CSHIMCU 23:32 → UNDOADMIN 08-27 01:53 → CSHIMCU 08-27 07:51 → CSHTELE 08-27 07:51
PROVIDERS: ADMIT Student in an Organized Health Care Education/Training Program; ATTEND Internal Medicine
PROC: 027034Z Dilation of Coronary Artery, One Artery with Drug-eluting Intraluminal Device, Percutaneous Approach (ICD-10-PCS; principal; 2021-08-28)
PROC: 02703ZZ Dilation of Coronary Artery, One Artery, Percutaneous Approach (ICD-10-PCS; 2021-08-28)
PROC: 4A023N7 Measurement of Cardiac Sampling and Pressure, Left Heart, Percutaneous Approach (ICD-10-PCS; 2021-08-28)
PROC: B2111ZZ Fluoroscopy of Multiple Coronary Arteries using Low Osmolar Contrast (ICD-10-PCS; 2021-08-28)
PROC: B2151ZZ Fluoroscopy of Left Heart using Low Osmolar Contrast (ICD-10-PCS; 2021-08-28)
PROC: B241ZZ3 Ultrasonography of Multiple Coronary Arteries, Intravascular (ICD-10-PCS; 2021-08-28)
DX: I21.09 ST elevation (STEMI) myocardial infarction involving other coronary artery of anterior wall (principal); I40.9 Acute myocarditis, unspecified; J96.01 Acute respiratory failure with hypoxia; G93.41 Metabolic encephalopathy; I50.43 Acute on chronic combined systolic (congestive) and diastolic (congestive) heart failure; Z68.42 Body mass index [BMI] 45.0-49.9, adult; N17.9 Acute kidney failure, unspecified; Z20.822 Contact with and (suspected) exposure to COVID-19; R74.01 Elevation of levels of liver transaminase levels; J45.20 Mild intermittent asthma, uncomplicated; J44.9 Chronic obstructive pulmonary disease, unspecified; E78.5 Hyperlipidemia, unspecified; E10.42 Type 1 diabetes mellitus with diabetic polyneuropathy; G62.9 Polyneuropathy, unspecified; G47.33 Obstructive sleep apnea (adult) (pediatric); F43.10 Post-traumatic stress disorder, unspecified; I11.0 Hypertensive heart disease with heart failure; D63.8 Anemia in other chronic diseases classified elsewhere; F41.9 Anxiety disorder, unspecified; M79.7 Fibromyalgia; G89.29 Other chronic pain; E66.01 Morbid (severe) obesity due to excess calories; M54.50 Low back pain, unspecified; M19.90 Unspecified osteoarthritis, unspecified site; K21.9 Gastro-esophageal reflux disease without esophagitis; E10.649 Type 1 diabetes mellitus with hypoglycemia without coma; Z60.2 Problems related to living alone; I95.9 Hypotension, unspecified; E10.51 Type 1 diabetes mellitus with diabetic peripheral angiopathy without gangrene; I25.5 Ischemic cardiomyopathy; Z86.711 Personal history of pulmonary embolism; Z88.5 Allergy status to narcotic agent; Z88.8 Allergy status to other drugs, medicaments and biological substances; Z79.82 Long term (current) use of aspirin; Z79.84 Long term (current) use of oral hypoglycemic drugs; Z79.899 Other long term (current) drug therapy; Z79.4 Long term (current) use of insulin; Z90.49 Acquired absence of other specified parts of digestive tract; Z80.0 Family history of malignant neoplasm of digestive organs; Z83.3 Family history of diabetes mellitus; Z89.421 Acquired absence of other right toe(s)
CPT/HCPCS: 36415; 36416; 36600; 70450; 71045; 71275; 76705; 80053; 80074; 81001; 82140; 82533; 82550; 82553; 82805; 83036; 83520; 83690; 83735; 83880; 84146; 84443; 84484; 85025; 85347; 85652; 86038; 86140; 86200; 86225; 87040; 87086; 87389; 92928; 92978; 92979; 93005; 93010; 93306; 93458; 93970; 94660; 94760; 96372; 96374; 96375; 97139; 99152; 99153; C1753; C1769; C1874; C1887; C9113; C9600; J0153; J1644; J1650; J1815; J1885; J1940; J2250; J2405; J2543; J3010; J3475; J3490; J7030; J7050; J7620; J7999; Q9967; U0002

== ENCOUNTER 2021-09-17 02:15 | Observation (INO) | payer OTHER ==
[2021-09-17 03:17] LABS: #Eosinphils 0.1 10x3/uL (0.0-0.5); #Monocytes 0.3 10x3/uL (0.0-1.1); #Neutrophils 3.1 10x3/uL (1.5-8.4); %Basophils 0.7 % (0.0-2.0); %Lymphocytes 23.2 % (18.0-47.0); %Monocytes 7.2 % (0.0-10.0); %Neutrophils 66.7 % (40.0-75.0); Hemoglobin 11.2 g/dL (13.5-17.5); Mean Corpuscular HGB CONC 32.6 g/dL (32.0-36.0); Mean Corpuscular Hemoglobin 25.3 pg (27.0-33.0); Mean Corpuscular Volume 77.8 fl (81.2-95.1); Mean Platelet Volume 11.7 fl (7.4-10.4); Platelet Count 237 10x3/uL (150-450); RBC Distribution Width 14.4 % (11.5-14.5); Red Blood Cell (RBC) Count 4.42 10x6/uL (4.32-5.72); White Blood Cell (WBC) Count 4.6 10x3/uL (3.5-10.5)
[2021-09-17 03:33] LABS: ALT (SGPT) 17 U/L (8-55); AST (SGOT) 13 U/L (5-34); Albumin 3.3 g/dL (3.5-5.0); Alkaline Phosphatase 102 U/L (40-110); Anion Gap 13 mmol/L (10-20); BUN (Urea Nitrogen) 12 mg/dL (8.9-20.6); Bilirubin, Total 0.5 mg/dL (0.2-1.2); Calc. Creatinine Clearance 0 mL/min (70-130); Calcium 8.6 mg/dL (7.8-10.44); Carbon Dioxide 26 mmol/L (22-29); Chloride 101 mmol/L (98-107); Estimated GFR 79; Glucose 532 mg/dL (70-105); Lipase 38 U/L (8-78); Potassium 4.4 mmol/L (3.5-5.1); Protein, Total 6.3 g/dL (6.0-8.3); Sodium 136 mmol/L (136-145)
[2021-09-17 04:03] LABS: CKMB 7.2 ng/mL (0-6.6)
[2021-09-17] MEDS ORDERED: Ondansetron ODT 4 MG TAB PO PRN (05:17)
[2021-09-17] MEDS ORDERED: Pantoprazole 40 MG VIAL IVP SCH (06:30)
[2021-09-17 07:28] LABS: Magnesium 1.7 mg/dL (1.6-2.6)
[2021-09-17 07:52] LABS: CKMB 6.4 ng/mL (0-6.6)
[2021-09-17] MEDS: Nitroglycerin 2% Ointment 1 INCH/1 GM Packet TOP SCH ×3 (07:55→23:16)
[2021-09-17] MEDS: Furosemide 40 MG/4 ML VIAL SLOW IVP SCH ×2 (07:56→15:00)
[2021-09-17] MEDS: Ondansetron PF 4 MG/2 ML Vial IVP PRN ×3 (07:56→23:17)
[2021-09-17] MEDS: HumaLOG 300 UNITS/3 ML VIAL SC SCH ×3 (08:03→18:22)
[2021-09-17] MEDS: Budesonide 0.5 MG/2 ML NEB NEB SCH ×3 (08:29→19:15)
[2021-09-17] MEDS: Arformoterol 15 MCG/2 ML NEB NEB SCH ×3 (08:29→19:15)
[2021-09-17] MEDS ORDERED: DULoxetine 60 MG CAP PO SCH (09:00)
[2021-09-17] MEDS ORDERED: oFLOXacin 0.3% Opth 5 ML BOT L EYE SCH (09:00)
[2021-09-17] MEDS ORDERED: DULoxetine 30 MG CAP PO SCH ×2 (09:00)
[2021-09-17 09:12] VITALS: BMI 42.5
[2021-09-17] MEDS: Lantus 1000 UNITS/10 ML VIAL SC SCH ×3 (10:00→23:15)
[2021-09-17 10:17] LABS: Hemoglobin 10.9 g/dL (13.5-17.5)
[2021-09-17 10:43] LABS: Critical Call Chem Troponin I RESULT DECREASING
[2021-09-17] MEDS: Losartan Potassium 50 MG TAB PO SCH (11:07)
[2021-09-17] MEDS: tiZANidine HCl 4 MG TAB PO SCH ×3 (11:08→23:14)
[2021-09-17] MEDS: Gabapentin 100 MG CAP PO SCH ×3 (11:08→23:14)
[2021-09-17] MEDS: TICAGRELOR 90 MG TABLET PO SCH ×2 (11:08→23:14)
[2021-09-17] MEDS: Carvedilol 6.25 MG TAB PO SCH ×2 (11:08→15:54)
[2021-09-17] MEDS: Aspirin Chewable 81 MG TAB PO SCH (11:08)
[2021-09-17] MEDS: Fenofibrate Nanocrystallized 145 MG TAB PO SCH (11:43)
[2021-09-17] MEDS: Aripiprazole 10 MG TAB PO SCH (11:43)
[2021-09-17] MEDS: Ciprofloxacin 0.3% Ophth Soln 2.5 ml Bottle L EYE SCH ×3 (13:00→23:15)
[2021-09-17] MEDS ORDERED: Iopamidol 370 76% 100 ML VIAL ONE (15:42)
[2021-09-17] MEDS ORDERED: Diazepam 5 MG TAB PO SCH (21:00)
[2021-09-17] MEDS ORDERED: Atorvastatin Calcium 40 MG TAB PO SCH (21:00)
[2021-09-17] MEDS: Pantoprazole 40 MG VIAL IVP SCH (23:15)
[2021-09-18] MEDS ORDERED: Dextrose 50% Abboject 50 ML SYRINGE IVP PRN (01:45)
[2021-09-18] MEDS ORDERED: Dextrose 5% in Water 1,000 ML IV PRN (01:45)
[2021-09-18] MEDS: Furosemide 40 MG/4 ML VIAL SLOW IVP SCH ×2 (06:47→14:35)
[2021-09-18] MEDS: Nitroglycerin 2% Ointment 1 INCH/1 GM Packet TOP SCH (06:48)
[2021-09-18] MEDS ORDERED: Spironolactone 25 MG TAB PO SCH (08:00)
[2021-09-18 08:14] LABS: #Eosinphils 0.1 10x3/uL (0.0-0.5); #Monocytes 0.4 10x3/uL (0.0-1.1); #Neutrophils 3.2 10x3/uL (1.5-8.4); %Basophils 0.2 % (0.0-2.0); %Eosinophils 2.4 % (0.0-6.0); %Lymphocytes 17.7 % (18.0-47.0); %Monocytes 8.8 % (0.0-10.0); %Neutrophils 70.5 % (40.0-75.0); Hemoglobin 10.6 g/dL (13.5-17.5); Mean Corpuscular HGB CONC 31.4 g/dL (32.0-36.0); Mean Corpuscular Hemoglobin 25.2 pg (27.0-33.0); Mean Corpuscular Volume 80.5 fl (81.2-95.1); Mean Platelet Volume 11.6 fl (7.4-10.4); Platelet Count 225 10x3/uL (150-450); RBC Distribution Width 14.2 % (11.5-14.5); White Blood Cell (WBC) Count 4.5 10x3/uL (3.5-10.5)
[2021-09-18] MEDS: Ciprofloxacin 0.3% Ophth Soln 2.5 ml Bottle L EYE SCH ×2 (08:23→12:07)
[2021-09-18] MEDS: Pantoprazole 40 MG VIAL IVP SCH (08:25)
[2021-09-18 08:27] LABS: Anion Gap 15 mmol/L (10-20); BUN (Urea Nitrogen) 15 mg/dL (8.9-20.6); Calc. Creatinine Clearance 161 mL/min (70-130); Calcium 8.8 mg/dL (7.8-10.44); Carbon Dioxide 27 mmol/L (22-29); Chloride 102 mmol/L (98-107); Estimated GFR 78; Glucose 314 mg/dL (70-105); Sodium 139 mmol/L (136-145)
[2021-09-18] MEDS: Lantus 1000 UNITS/10 ML VIAL SC SCH (08:27)
[2021-09-18] MEDS: Aripiprazole 10 MG TAB PO SCH (08:30)
[2021-09-18] MEDS: TICAGRELOR 90 MG TABLET PO SCH (08:30)
[2021-09-18] MEDS: tiZANidine HCl 4 MG TAB PO SCH ×2 (08:30→14:49)
[2021-09-18] MEDS: Gabapentin 100 MG CAP PO SCH ×2 (08:31→14:49)
[2021-09-18] MEDS: Losartan Potassium 50 MG TAB PO SCH (08:31)
[2021-09-18] MEDS: Aspirin Chewable 81 MG TAB PO SCH (08:31)
[2021-09-18] MEDS: Carvedilol 6.25 MG TAB PO SCH (08:31)
[2021-09-18] MEDS: Fenofibrate Nanocrystallized 145 MG TAB PO SCH (08:32)
[2021-09-18] MEDS: Ondansetron PF 4 MG/2 ML Vial IVP PRN (08:38)
[2021-09-18] MEDS: HumaLOG 300 UNITS/3 ML VIAL SC SCH ×2 (08:39→12:07)
[2021-09-18] MEDS: Arformoterol 15 MCG/2 ML NEB NEB SCH (12:09)
[2021-09-18] MEDS: Budesonide 0.5 MG/2 ML NEB NEB SCH (12:15)
[2021-09-18 16:28] VITALS: BP 93/52; TEMP 98.9
[2021-09-21 17:12] LABS: Campy jejuni + coli by PCR Negative (Negative); STEC Shiga Toxin 1+2 Negative (Negative); Salmonella spp. by PCR Negative (Negative); Shigella spp + EIEC by PCR Negative (Negative)
[2021-09-23 09:40] LABS: Routine O & P Final report (.)
== END 2021-09-18 16:05 | disposition home or self-care (01) ==
LOC: CSHERS 02:15 → CSHTELE 05:57
PROVIDERS: ADMIT Internal Medicine; ATTEND Internal Medicine
DX: I11.0 Hypertensive heart disease with heart failure (principal); I50.43 Acute on chronic combined systolic (congestive) and diastolic (congestive) heart failure; I21.A1 Myocardial infarction type 2; K92.0 Hematemesis; K52.9 Noninfective gastroenteritis and colitis, unspecified; E11.65 Type 2 diabetes mellitus with hyperglycemia; I25.10 Atherosclerotic heart disease of native coronary artery without angina pectoris; E78.5 Hyperlipidemia, unspecified; J44.9 Chronic obstructive pulmonary disease, unspecified; E11.43 Type 2 diabetes mellitus with diabetic autonomic (poly)neuropathy; K31.84 Gastroparesis; I25.2 Old myocardial infarction; E11.40 Type 2 diabetes mellitus with diabetic neuropathy, unspecified; G47.33 Obstructive sleep apnea (adult) (pediatric); I25.5 Ischemic cardiomyopathy; E66.01 Morbid (severe) obesity due to excess calories; Z68.42 Body mass index [BMI] 45.0-49.9, adult; Z77.22 Contact with and (suspected) exposure to environmental tobacco smoke (acute) (chronic); Z79.02 Long term (current) use of antithrombotics/antiplatelets; Z79.4 Long term (current) use of insulin; Z79.82 Long term (current) use of aspirin; Z79.899 Other long term (current) drug therapy; Z88.5 Allergy status to narcotic agent; Z88.8 Allergy status to other drugs, medicaments and biological substances; Z95.5 Presence of coronary angioplasty implant and graft; Z89.421 Acquired absence of other right toe(s); Z20.822 Contact with and (suspected) exposure to COVID-19
CPT/HCPCS: 36415; 36416; 71045; 71275; 80048; 80053; 82010; 82553; 83690; 83735; 83880; 84443; 84484; 85025; 85379; 87177; 87324; 87449; 87505; 93005; 94640; 94760; 96361; 96374; 96375; 96376; C9113; G0378; J1815; J1940; J2405; J7620; J7626; Q9967; U0003; U0005

== ENCOUNTER 2021-09-25 00:14 | Inpatient (IN) | payer OTHER ==
[2021-09-25] MEDS ORDERED: Ondansetron PF 4 MG/2 ML Vial ONE (01:23)
[2021-09-25] MEDS ORDERED: Ketorolac Tromethamine 30 MG/ML VIAL ONE (01:23)
[2021-09-25] MEDS ORDERED: Morphine 4 MG/ML VIAL ONE (01:23)
[2021-09-25] MEDS ORDERED: Piperacillin/Tazobactam 3.375 GM VIAL ONE (01:24)
[2021-09-25 01:33] LABS: ALT (SGPT) 14 U/L (8-55); AST (SGOT) 25 U/L (5-34); Albumin 3.8 g/dL (3.5-5.0); Alkaline Phosphatase 69 U/L (40-110); Anion Gap 16 mmol/L (10-20); BUN (Urea Nitrogen) 10 mg/dL (8.9-20.6); Bilirubin, Total 0.7 mg/dL (0.2-1.2); Calc. Creatinine Clearance 0 mL/min (70-130); Calcium 9.3 mg/dL (7.8-10.44); Carbon Dioxide 24 mmol/L (22-29); Chloride 95 mmol/L (98-107); Estimated GFR 79; Globulin 3.7 g/dL (2.4-3.5); Glucose 407 mg/dL (70-105); Lipase 40 U/L (8-78); Magnesium 1.5 mg/dL (1.6-2.6); Potassium 5.1 mmol/L (3.5-5.1); Protein, Total 7.5 g/dL (6.0-8.3); Sodium 130 mmol/L (136-145)
[2021-09-25 01:40] LABS: Hemoglobin 12.8 g/dL (13.5-17.5); Mean Corpuscular HGB CONC 32.8 g/dL (32.0-36.0); Platelet Count 159 10x3/uL (150-450); RBC Distribution Width 14.4 % (11.5-14.5); Red Blood Cell (RBC) Count 5.13 10x6/uL (4.32-5.72); White Blood Cell (WBC) Count 2.5 10x3/uL (3.5-10.5)
[2021-09-25 01:58] LABS: CKMB 2.2 ng/mL (0-6.6); MDiff Complete? YES
[2021-09-25 02:53] LABS: SARS-CoV-2 NAA Rapid Test DETECTED (NotDetected)
[2021-09-25] MEDS ORDERED: Calcium Carbonate 500 MG ChewTAB PO PRN (03:24)
[2021-09-25] MEDS ORDERED: Dextrose 5% in Water 1,000 ML IV PRN (03:24)
[2021-09-25] MEDS ORDERED: Dextrose 50% Abboject 50 ML SYRINGE SLOW IVP PRN (03:24)
[2021-09-25] MEDS ORDERED: Guaifenesin DM 100-10/5 ML UDCUP PO PRN (03:24)
[2021-09-25] MEDS ORDERED: Ventolin HFA Inhaler 60 PUFF INHALER INH PRN (03:31)
[2021-09-25] MEDS ORDERED: Dexamethasone 4 mg/ml Vial SLOW IVP SCH (03:45)
[2021-09-25] MEDS ORDERED: Magnesium 2 GM/50 ML(in water) 2 GM in Premix Bag 1 BAG IVPB SCH (04:00)
[2021-09-25] MEDS ORDERED: Acetaminophen 650 MG/20.3 ML UDCUP ONE (04:28)
[2021-09-25] MEDS ORDERED: Furosemide 40 MG/4 ML VIAL ONE (04:28)
[2021-09-25 04:49] LABS: Band 1 % (5-11); Lymphocytes 20 % (21-51); Monocytes 19 % (0-10); Neutrophil 60 % (42-75); Nucleated RBC 1 % (0)
[2021-09-25 04:50] LABS: Schistocytes SLIGHT = 2-5 cells (100X) (0-1/hpf)
[2021-09-25 04:51] LABS: Hypochromia SLIGHT = 6-15 cells (100X) (0-5/hpf); Platelet Morphology Comment Appears Adequate
[2021-09-25 05:25] VITALS: BMI 42.5
[2021-09-25] MEDS: HumaLOG 300 UNITS/3 ML VIAL SC PRN ×2 (05:40→16:10)
[2021-09-25 06:04] LABS: Magnesium 1.5 mg/dL (1.6-2.6)
[2021-09-25 06:17] LABS: CRP (Inflammatory) 2.21 mg/dL (= or < 0.5)
[2021-09-25 06:28] LABS: CKMB 2.2 ng/mL (0-6.6)
[2021-09-25] MEDS ORDERED: Ventolin HFA Inhaler 60 PUFF INHALER INH SCH (07:00)
[2021-09-25] MEDS ORDERED: Albuterol 200 PUFF (6.7GM INHALER) INH PRN (08:13)
[2021-09-25] MEDS ORDERED: Albuterol 200 PUFF (6.7GM INHALER) INH SCH (08:15)
[2021-09-25] MEDS: Mometasone/Formoterol 200/5 60 PUFF INH SCH ×2 (08:30→19:00)
[2021-09-25] MEDS: Spironolactone 25 MG TAB PO SCH (08:42)
[2021-09-25] MEDS: Carvedilol 6.25 MG TAB PO SCH ×2 (08:42→16:16)
[2021-09-25] MEDS: Fenofibrate Nanocrystallized 145 MG TAB PO SCH (08:43)
[2021-09-25] MEDS: Aspirin 81 mg Enteric Coated Tablet PO SCH (08:43)
[2021-09-25] MEDS: DULoxetine 30 MG CAP PO SCH (08:43)
[2021-09-25] MEDS: Gabapentin 100 MG CAP PO SCH ×3 (08:43→20:02)
[2021-09-25] MEDS: Pantoprazole 40 MG VIAL IVP SCH ×2 (08:43→20:03)
[2021-09-25] MEDS: Furosemide 40 MG/4 ML VIAL SLOW IVP SCH (08:43)
[2021-09-25] MEDS: Aripiprazole 10 MG TAB PO SCH (08:43)
[2021-09-25] MEDS: Lantus 1000 UNITS/10 ML VIAL SC SCH ×2 (08:43→20:04)
[2021-09-25] MEDS: Enoxaparin Sodium 40 MG/0.4 ML SYRINGE SC SCH (08:43)
[2021-09-25] MEDS: tiZANidine HCl 4 MG TAB PO SCH ×2 (08:44→20:02)
[2021-09-25] MEDS: TICAGRELOR 90 MG TABLET PO SCH ×2 (08:44→20:02)
[2021-09-25] MEDS: Zinc Gluconate 50 MG TAB PO SCH (08:44)
[2021-09-25 09:01] LABS: Critical Call Chem Troponin I RESULT DECREASING
[2021-09-25] MEDS: Losartan Potassium 50 MG TAB PO SCH (09:10)
[2021-09-25] MEDS ORDERED: Iopamidol 300 61% 100 ML VIAL FS ONE (10:17)
[2021-09-25 11:58] LABS: Glucose 559 mg/dL (70-105)
[2021-09-25] MEDS: Albuterol 200 PUFF (6.7GM INHALER) INH SCH ×2 (13:40→19:00)
[2021-09-25 13:57] LABS: Glucose 576 mg/dL (70-105)
[2021-09-25] MEDS ORDERED: Insulin Regular 300 UNITS/3 ML VIAL IVP SCH (15:30)
[2021-09-25] MEDS: Atorvastatin Calcium 40 MG TAB PO SCH (20:02)
[2021-09-26] MEDS: Acetaminophen 325 MG TAB PO PRN (00:07)
[2021-09-26] MEDS: HumaLOG 300 UNITS/3 ML VIAL SC PRN ×4 (00:19→16:40)
[2021-09-26] MEDS: Ondansetron PF 4 MG/2 ML Vial IVP PRN ×3 (00:27→18:39)
[2021-09-26] MEDS: Albuterol 200 PUFF (6.7GM INHALER) INH SCH ×4 (01:00→19:47)
[2021-09-26 06:33] LABS: Anion Gap 14 mmol/L (10-20); BUN (Urea Nitrogen) 20 mg/dL (8.9-20.6); CRP (Inflammatory) 1.15 mg/dL (= or < 0.5); Calc. Creatinine Clearance 159 mL/min (70-130); Calcium 9.3 mg/dL (7.8-10.44); Carbon Dioxide 26 mmol/L (22-29); Chloride 97 mmol/L (98-107); Estimated GFR 85; Glucose 320 mg/dL (70-105); Potassium 5.1 mmol/L (3.5-5.1); Sodium 132 mmol/L (136-145)
[2021-09-26 06:47] LABS: #Monocytes 0.3 10x3/uL (0.0-1.1); #Neutrophils 1.3 10x3/uL (1.5-8.4); %Lymphocytes 27.6 % (18.0-47.0); %Monocytes 14.3 % (0.0-10.0); %Neutrophils 57.6 % (40.0-75.0); Hemoglobin 12.8 g/dL (13.5-17.5); Mean Corpuscular HGB CONC 33.1 g/dL (32.0-36.0); Mean Corpuscular Hemoglobin 25.1 pg (27.0-33.0); Mean Platelet Volume 11.8 fl (7.4-10.4); Platelet Count 190 10x3/uL (150-450); Red Blood Cell (RBC) Count 5.09 10x6/uL (4.32-5.72); White Blood Cell (WBC) Count 2.2 10x3/uL (3.5-10.5)
[2021-09-26] MEDS: Mometasone/Formoterol 200/5 60 PUFF INH SCH ×2 (07:35→19:22)
[2021-09-26] MEDS: tiZANidine HCl 4 MG TAB PO SCH ×2 (09:33→21:17)
[2021-09-26] MEDS: Furosemide 40 MG/4 ML VIAL SLOW IVP SCH (09:33)
[2021-09-26] MEDS: Fenofibrate Nanocrystallized 145 MG TAB PO SCH (09:33)
[2021-09-26] MEDS: Pantoprazole 40 MG VIAL IVP SCH ×2 (09:33→21:16)
[2021-09-26] MEDS: Zinc Gluconate 50 MG TAB PO SCH (09:33)
[2021-09-26] MEDS: Losartan Potassium 50 MG TAB PO SCH (09:33)
[2021-09-26] MEDS: Enoxaparin Sodium 40 MG/0.4 ML SYRINGE SC SCH (09:33)
[2021-09-26] MEDS: Gabapentin 100 MG CAP PO SCH ×3 (09:33→21:16)
[2021-09-26] MEDS: DULoxetine 30 MG CAP PO SCH (09:33)
[2021-09-26] MEDS: Spironolactone 25 MG TAB PO SCH (09:34)
[2021-09-26] MEDS: Lantus 1000 UNITS/10 ML VIAL SC SCH ×2 (09:34→21:17)
[2021-09-26] MEDS: Aripiprazole 10 MG TAB PO SCH (09:34)
[2021-09-26] MEDS: Carvedilol 6.25 MG TAB PO SCH ×2 (09:34→15:36)
[2021-09-26] MEDS: Aspirin 81 mg Enteric Coated Tablet PO SCH (09:34)
[2021-09-26] MEDS: TICAGRELOR 90 MG TABLET PO SCH ×2 (09:35→21:17)
[2021-09-26] MEDS: Atorvastatin Calcium 40 MG TAB PO SCH (21:17)
[2021-09-27] MEDS: HumaLOG 300 UNITS/3 ML VIAL SC PRN ×2 (00:38→16:27)
[2021-09-27] MEDS: Ondansetron PF 4 MG/2 ML Vial IVP PRN ×3 (00:39→21:44)
[2021-09-27 05:21] LABS: Anion Gap 15 mmol/L (10-20); BUN (Urea Nitrogen) 18 mg/dL (8.9-20.6); CRP (Inflammatory) Less than 0.50 mg/dL (= or < 0.5); Calc. Creatinine Clearance 189 mL/min (70-130); Carbon Dioxide 28 mmol/L (22-29); Chloride 95 mmol/L (98-107); Estimated GFR 105; Glucose 158 mg/dL (70-105); Potassium 3.9 mmol/L (3.5-5.1); Sodium 134 mmol/L (136-145)
[2021-09-27 05:28] LABS: #Monocytes 0.3 10x3/uL (0.0-1.1); #Neutrophils 1.1 10x3/uL (1.5-8.4); %Basophils 0.4 % (0.0-2.0); %Eosinophils 0.8 % (0.0-6.0); %Lymphocytes 44.7 % (18.0-47.0); %Monocytes 10.2 % (0.0-10.0); %Neutrophils 43.5 % (40.0-75.0); Hemoglobin 12.3 g/dL (13.5-17.5); Mean Corpuscular HGB CONC 33.2 g/dL (32.0-36.0); Mean Corpuscular Volume 75.2 fl (81.2-95.1); Mean Platelet Volume 11.2 fl (7.4-10.4); Platelet Count 188 10x3/uL (150-450); RBC Distribution Width 14.1 % (11.5-14.5); Red Blood Cell (RBC) Count 4.92 10x6/uL (4.32-5.72); White Blood Cell (WBC) Count 2.4 10x3/uL (3.5-10.5)
[2021-09-27] MEDS: Acetaminophen 325 MG TAB PO PRN ×2 (05:47→21:33)
[2021-09-27] MEDS: Mometasone/Formoterol 200/5 60 PUFF INH SCH ×2 (08:00→21:40)
[2021-09-27] MEDS: Albuterol 200 PUFF (6.7GM INHALER) INH SCH ×3 (08:15→21:30)
[2021-09-27] MEDS: Dexamethasone 20 MG/5 ML VIAL SLOW IVP SCH (08:43)
[2021-09-27] MEDS: Pantoprazole 40 MG VIAL IVP SCH ×2 (08:43→21:31)
[2021-09-27] MEDS: Furosemide 40 MG/4 ML VIAL SLOW IVP SCH (08:44)
[2021-09-27] MEDS: Zinc Gluconate 50 MG TAB PO SCH (08:44)
[2021-09-27] MEDS: Fenofibrate Nanocrystallized 145 MG TAB PO SCH (08:44)
[2021-09-27] MEDS: Enoxaparin Sodium 40 MG/0.4 ML SYRINGE SC SCH (08:44)
[2021-09-27] MEDS: Aripiprazole 10 MG TAB PO SCH (08:53)
[2021-09-27] MEDS: Carvedilol 6.25 MG TAB PO SCH ×2 (08:53→15:11)
[2021-09-27] MEDS: Spironolactone 25 MG TAB PO SCH (08:53)
[2021-09-27] MEDS: Losartan Potassium 50 MG TAB PO SCH (08:53)
[2021-09-27] MEDS: tiZANidine HCl 4 MG TAB PO SCH ×2 (08:53→21:33)
[2021-09-27] MEDS: Aspirin 81 mg Enteric Coated Tablet PO SCH (08:54)
[2021-09-27] MEDS: Lantus 1000 UNITS/10 ML VIAL SC SCH ×2 (08:54→21:31)
[2021-09-27] MEDS: DULoxetine 30 MG CAP PO SCH (08:54)
[2021-09-27] MEDS: TICAGRELOR 90 MG TABLET PO SCH ×2 (08:54→21:34)
[2021-09-27] MEDS: Gabapentin 100 MG CAP PO SCH ×3 (08:54→21:33)
[2021-09-27] MEDS: Atorvastatin Calcium 40 MG TAB PO SCH (21:33)
[2021-09-28] MEDS: HumaLOG 300 UNITS/3 ML VIAL SC PRN ×2 (00:35→04:20)
[2021-09-28] MEDS: Albuterol 200 PUFF (6.7GM INHALER) INH SCH ×4 (01:30→12:54)
[2021-09-28] MEDS: Mometasone/Formoterol 200/5 60 PUFF INH SCH (08:20)
[2021-09-28] MEDS: Furosemide 40 MG/4 ML VIAL SLOW IVP SCH (08:57)
[2021-09-28] MEDS: Enoxaparin Sodium 40 MG/0.4 ML SYRINGE SC SCH (08:57)
[2021-09-28] MEDS: Pantoprazole 40 MG VIAL IVP SCH (08:58)
[2021-09-28] MEDS: Aspirin 81 mg Enteric Coated Tablet PO SCH (08:58)
[2021-09-28] MEDS: tiZANidine HCl 4 MG TAB PO SCH (08:58)
[2021-09-28] MEDS: Fenofibrate Nanocrystallized 145 MG TAB PO SCH (08:58)
[2021-09-28] MEDS: Aripiprazole 10 MG TAB PO SCH (08:58)
[2021-09-28] MEDS: Dexamethasone 20 MG/5 ML VIAL SLOW IVP SCH (08:58)
[2021-09-28] MEDS: Zinc Gluconate 50 MG TAB PO SCH (08:59)
[2021-09-28] MEDS: Spironolactone 25 MG TAB PO SCH (08:59)
[2021-09-28] MEDS: TICAGRELOR 90 MG TABLET PO SCH (08:59)
[2021-09-28] MEDS: Carvedilol 6.25 MG TAB PO SCH (08:59)
[2021-09-28] MEDS: Gabapentin 100 MG CAP PO SCH (08:59)
[2021-09-28] MEDS: Losartan Potassium 50 MG TAB PO SCH (08:59)
[2021-09-28] MEDS: DULoxetine 30 MG CAP PO SCH (08:59)
[2021-09-28] MEDS: Lantus 1000 UNITS/10 ML VIAL SC SCH (09:00)
[2021-09-28] MEDS ORDERED: Lantus 1000 UNITS/10 ML VIAL SC SCH ×2 (09:00)
[2021-09-28] MEDS ORDERED: HumaLOG 300 UNITS/3 ML VIAL SC SCH (11:30)
[2021-09-28 12:49] VITALS: BP 110/62; TEMP 98.2
== END 2021-09-28 15:29 | disposition home or self-care (01) | DRG 177 ==
LOC: CSHERS 00:14 → CSHTELE 05:03
PROVIDERS: ADMIT Student in an Organized Health Care Education/Training Program; ATTEND Family Medicine
PROC: 8E0ZXY6 Isolation (ICD-10-PCS; principal; 2021-09-25)
DX: U07.1 COVID-19 (principal); I50.23 Acute on chronic systolic (congestive) heart failure; J96.01 Acute respiratory failure with hypoxia; J12.82 Pneumonia due to coronavirus disease 2019; I13.0 Hypertensive heart and chronic kidney disease with heart failure and stage 1 through stage 4 chronic kidney disease, or unspecified chronic kidney disease; J44.0 Chronic obstructive pulmonary disease with (acute) lower respiratory infection; E66.2 Morbid (severe) obesity with alveolar hypoventilation; Z68.41 Body mass index [BMI] 40.0-44.9, adult; R79.89 Other specified abnormal findings of blood chemistry; N18.30 Chronic kidney disease, stage 3 unspecified; K21.9 Gastro-esophageal reflux disease without esophagitis; D63.1 Anemia in chronic kidney disease; E78.5 Hyperlipidemia, unspecified; I25.10 Atherosclerotic heart disease of native coronary artery without angina pectoris; E10.22 Type 1 diabetes mellitus with diabetic chronic kidney disease; E10.42 Type 1 diabetes mellitus with diabetic polyneuropathy; F41.9 Anxiety disorder, unspecified; M79.7 Fibromyalgia; G89.29 Other chronic pain; E83.42 Hypomagnesemia; M19.90 Unspecified osteoarthritis, unspecified site; M54.50 Low back pain, unspecified; E10.43 Type 1 diabetes mellitus with diabetic autonomic (poly)neuropathy; K31.84 Gastroparesis; F43.10 Post-traumatic stress disorder, unspecified; Z79.899 Other long term (current) drug therapy; Z79.82 Long term (current) use of aspirin; Z95.5 Presence of coronary angioplasty implant and graft; Z79.4 Long term (current) use of insulin; Z88.8 Allergy status to other drugs, medicaments and biological substances; I25.2 Old myocardial infarction; Z88.5 Allergy status to narcotic agent; Z80.0 Family history of malignant neoplasm of digestive organs; Z83.3 Family history of diabetes mellitus; Z90.49 Acquired absence of other specified parts of digestive tract; Z89.432 Acquired absence of left foot; Z89.431 Acquired absence of right foot; Z86.711 Personal history of pulmonary embolism
CPT/HCPCS: 36415; 36416; 71045; 74177; 80048; 80053; 82553; 82728; 83605; 83690; 83735; 83880; 84484; 85025; 85379; 86140; 87040; 87077; 87149; 93005; 94664; 94760; 96365; 96375; C9113; J1100; J1650; J1815; J1885; J1940; J2270; J2405; J2543; J3475; Q9967; U0002

== ENCOUNTER 2022-02-28 11:28 | Emergency (ER) | payer OTHER ==
[2022-02-28] MEDS ORDERED: Lidocaine 1% (PF) 30 ML VIAL ONE (12:03)
[2022-02-28] MEDS ORDERED: HYDROcodone/Acetaminophen 5/325 mg Tablet ONE (12:45)
== END 2022-02-28 12:50 | disposition home or self-care (01) ==
LOC: CSHERS 11:28
DX: L02.811 Cutaneous abscess of head [any part, except face] (principal); J44.9 Chronic obstructive pulmonary disease, unspecified; I11.0 Hypertensive heart disease with heart failure; I50.9 Heart failure, unspecified; E10.9 Type 1 diabetes mellitus without complications; E78.5 Hyperlipidemia, unspecified
CPT/HCPCS: 10060; J2001

== ENCOUNTER 2022-03-12 08:35 | Inpatient (IN) | payer OTHER ==
[2022-03-12 10:15] LABS: SARS-CoV-2 NAA Rapid Test Not Detected (NotDetected)
[2022-03-12] MEDS ORDERED: Piperacillin/Tazobactam 4.5 GM VIAL ONE (10:15)
[2022-03-12] MEDS ORDERED: Ondansetron PF 4 MG/2 ML Vial ONE ×2 (10:25→12:13)
[2022-03-12 10:37] LABS: #Monocytes 0.2 10x3/uL (0.0-1.1); #Neutrophils 3.6 10x3/uL (1.5-8.4); %Eosinophils 0.2 % (0.0-6.0); %Monocytes 3.8 % (0.0-10.0); %Neutrophils 84.5 % (40.0-75.0); Hemoglobin 11.5 g/dL (13.5-17.5); Mean Corpuscular HGB CONC 33.3 g/dL (32.0-36.0); Mean Corpuscular Hemoglobin 26.1 pg (27.0-33.0); Mean Corpuscular Volume 78.2 fl (81.2-95.1); Mean Platelet Volume 10.4 fl (7.4-10.4); Platelet Count 241 10x3/uL (150-450); RBC Distribution Width 13.6 % (11.5-14.5); Red Blood Cell (RBC) Count 4.41 10x6/uL (4.32-5.72); White Blood Cell (WBC) Count 4.2 10x3/uL (3.5-10.5)
[2022-03-12 10:54] LABS: Acetaminophen Less than 10.0 mcg/mL (10.0-30.0); Alcohol Less than 10 mg/dL (Less than 10); Salicylate Less than 8.0 mg/dL (15.0-30.0)
[2022-03-12 10:55] LABS: ALT (SGPT) 7 U/L (8-55); AST (SGOT) 23 U/L (5-34); Albumin 3.1 g/dL (3.5-5.0); Alkaline Phosphatase 54 U/L (40-110); Anion Gap 14 mmol/L (10-20); BUN (Urea Nitrogen) 14 mg/dL (8.9-20.6); Bilirubin, Total 0.4 mg/dL (0.2-1.2); Calc. Creatinine Clearance 0 mL/min (70-130); Calcium 8.8 mg/dL (7.8-10.44); Carbon Dioxide 28 mmol/L (22-29); Chloride 92 mmol/L (98-107); Estimated GFR 44; Globulin 4.6 g/dL (2.4-3.5); Glucose 279 mg/dL (70-105); Potassium 4.1 mmol/L (3.5-5.1); Protein, Total 7.7 g/dL (6.0-8.3); Sodium 130 mmol/L (136-145)
[2022-03-12 11:02] LABS: Bilirubin Neg (Negative); Blood, Urine 150 (Negative); Clarity Clear (Clear); Glucose, Urine (Dipstick) 250 mg/dL (Negative); Ketone, Urine 15 mg/dL (Negative); Leukocyte Negative (Negative); Nitrite Negative (Negative); Protein, Urine (Dipstick) 100 mg/dl (Neg-Trace); Urobilinogen Normal mg/dL (Less than 2)
[2022-03-12] MEDS ORDERED: Vancomycin 1 GM VIAL ONE (11:06)
[2022-03-12 11:10] LABS: Amphetamine Not Detected (NotDetected); Barbiturates Screen Not Detected (NotDetected); Benzodiazepine Screen Detected (NotDetected); Cocaine Metabolite Screen Detected (NotDetected); Methadone Not Detected (NotDetected); Methamphetamine Not Detected (NotDetected); Opiate Screen Not Detected (NotDetected); Oxycodone Screen Not Detected (NotDetected); Phencyclidine (PCP) Not Detected (NotDetected); THC/Cannabinoid Screen Not Detected (NotDetected); Tricyclic Screen Not Detected (NotDetected)
[2022-03-12 11:11] LABS: Bacteria/HPF Rare-Few HPF (None Seen); Renal Epithelial 0-3 HPF (None Seen); Squamous Epithelial 0-3 HPF (0-3); WBC/HPF 0-3 HPF (0-3)
[2022-03-12 11:14] LABS: HIV (1/2) Antibody/Antigen Non-Reactive (NonReactive); HIV 1/2 INDEX 0.11 S/CO (<1.00)
[2022-03-12] MEDS ORDERED: Ketorolac Tromethamine 30 MG/ML VIAL ONE (12:13)
[2022-03-12] MEDS ORDERED: Acetaminophen 650 MG Suppository PR PRN (14:31)
[2022-03-12] MEDS ORDERED: Guaifenesin DM 100-10/5 ML UDCUP PO PRN (14:31)
[2022-03-12] MEDS ORDERED: Ondansetron ODT 4 MG TAB PO PRN (14:31)
[2022-03-12] MEDS ORDERED: HumaLOG 300 UNITS/3 ML VIAL SC PRN (14:36)
[2022-03-12] MEDS ORDERED: Dextrose 5% in Water 1,000 ML IV PRN (14:36)
[2022-03-12] MEDS ORDERED: Dextrose 50% Abboject 50 ML SYRINGE SLOW IVP PRN (14:36)
[2022-03-12] MEDS ORDERED: Vancomycin 1 GM in Premix Bag 1 BAG IVPB SCH (14:45)
[2022-03-12 15:31] LABS: CKMB 5.7 ng/mL (0-6.6)
[2022-03-12] MEDS: Ondansetron PF 4 MG/2 ML Vial IVP PRN (15:34)
[2022-03-12] MEDS ORDERED: Piperacillin/Tazobactam 3.375 GM in Sodium Chloride 0.9% 100 ML IVPB SCH (16:30)
[2022-03-12] MEDS: HumaLOG 300 UNITS/3 ML VIAL SC PRN (17:17)
[2022-03-12] MEDS ORDERED: Metoclopramide HCl 10 MG/2 ML VIAL IVP PRN (17:19)
[2022-03-12 18:09] VITALS: BMI 35.4
[2022-03-12] MEDS ORDERED: Vancomycin HCl 1 GM in Sodium Chloride 0.9% 250 ML 250 ML IVPB SCH (18:30)
[2022-03-12] MEDS ORDERED: diphenhydrAMINE 50 MG/ML VIAL IVP SCH (18:45)
[2022-03-12] MEDS ORDERED: FLU VACC QS2022-23(6MOS UP)/PF 60 MCG/0.5 ML SYRINGE IM ONE (19:00)
[2022-03-12] MEDS ORDERED: Vancomycin Sliding Scale 1 EACH IVPB PRN (19:32)
[2022-03-12] MEDS: Mometasone/Formoterol 200/5 60 PUFF INH SCH (20:02)
[2022-03-12 20:27] LABS: Strep pneumo Urine Ag NEGATIVE (NEGATIVE)
[2022-03-12 20:28] LABS: Legionella Urinary Ag Negative (Negative)
[2022-03-12 20:48] LABS: Syphilis Antibody INDETERMINATE (Nonreactive)
[2022-03-12] MEDS ORDERED: Promethazine HCl 12.5 MG in Sodium Chloride 0.9% 50 ML IVPB SCH (21:30)
[2022-03-12] MEDS: Piperacillin/Tazobactam 3.375 GM in Sodium Chloride 0.9% 100 ML IVPB SCH (21:40)
[2022-03-12] MEDS: Lantus 1000 UNITS/10 ML VIAL SC SCH (21:42)
[2022-03-12] MEDS: Gabapentin 100 MG CAP PO SCH (21:44)
[2022-03-12] MEDS: TICAGRELOR 90 MG TABLET PO SCH (21:44)
[2022-03-12] MEDS: Atorvastatin Calcium 40 MG TAB PO SCH (21:44)
[2022-03-12] MEDS: Acetaminophen 325 MG TAB PO PRN (22:43)
[2022-03-13] MEDS ORDERED: Guaifenesin DM 100-10/5 ML UDCUP PO SCH (02:30)
[2022-03-13] MEDS ORDERED: HYDROcodone/Acetaminophen 5/325 mg Tablet PO SCH (02:30)
[2022-03-13] MEDS: Piperacillin/Tazobactam 3.375 GM in Sodium Chloride 0.9% 100 ML IVPB SCH (04:38)
[2022-03-13 04:51] LABS: #Monocytes 0.1 10x3/uL (0.0-1.1); #Neutrophils 3.9 10x3/uL (1.5-8.4); %Basophils 0.2 % (0.0-2.0); %Lymphocytes 8.3 % (18.0-47.0); %Monocytes 2.9 % (0.0-10.0); %Neutrophils 88.2 % (40.0-75.0); Hemoglobin 9.8 g/dL (13.5-17.5); Mean Corpuscular HGB CONC 33.4 g/dL (32.0-36.0); Mean Corpuscular Hemoglobin 26.1 pg (27.0-33.0); Mean Corpuscular Volume 77.9 fl (81.2-95.1); Mean Platelet Volume 10.2 fl (7.4-10.4); Platelet Count 216 10x3/uL (150-450); RBC Distribution Width 13.8 % (11.5-14.5); Red Blood Cell (RBC) Count 3.76 10x6/uL (4.32-5.72); White Blood Cell (WBC) Count 4.5 10x3/uL (3.5-10.5)
[2022-03-13 04:52] LABS: Vancomycin, Random 20.7 ug/mL (See Comment)
[2022-03-13 05:12] LABS: BUN (Urea Nitrogen) 16 mg/dL (8.9-20.6); Calc. Creatinine Clearance 70 mL/min (70-130); Carbon Dioxide 24 mmol/L (22-29); Estimated GFR 39; Glucose 267 mg/dL (70-105)
[2022-03-13 05:24] LABS: Calcium 7.1 mg/dL (7.8-10.44); Chloride 97 mmol/L (98-107); Sodium 130 mmol/L (136-145)
[2022-03-13 05:28] LABS: Anion Gap 13 mmol/L (10-20)
[2022-03-13] MEDS: Ipratropium/Albuterol 3 ML NEB NEB PRN (06:56)
[2022-03-13] MEDS: Mometasone/Formoterol 200/5 60 PUFF INH SCH ×2 (07:05→20:10)
[2022-03-13] MEDS: Ondansetron PF 4 MG/2 ML Vial IVP PRN (09:45)
[2022-03-13] MEDS: Acetaminophen 325 MG TAB PO PRN (09:51)
[2022-03-13] MEDS: Carvedilol 6.25 MG TAB PO SCH ×2 (09:54→17:34)
[2022-03-13] MEDS: Gabapentin 100 MG CAP PO SCH ×3 (09:54→21:44)
[2022-03-13] MEDS: DULoxetine 30 MG CAP PO SCH (09:56)
[2022-03-13] MEDS: Lantus 1000 UNITS/10 ML VIAL SC SCH ×2 (09:56→21:52)
[2022-03-13] MEDS: Aspirin 81 mg Enteric Coated Tablet PO SCH (09:56)
[2022-03-13] MEDS: Aripiprazole 10 MG TAB PO SCH (09:56)
[2022-03-13] MEDS: TICAGRELOR 90 MG TABLET PO SCH ×2 (09:56→21:43)
[2022-03-13] MEDS ORDERED: Sodium Chloride 0.9% 1,000 ML IV SCH (10:15)
[2022-03-13] MEDS ORDERED: Meropenem 1 GM in Sodium Chloride 0.9% 100 ML IVPB SCH (11:00)
[2022-03-13] MEDS: Morphine 2 MG/ML VIAL SLOW IVP PRN ×3 (11:13→19:36)
[2022-03-13] MEDS: VANCOMYCIN 1.25 GM/250 ML BAG 1.25 GM in Premix Bag 1 BAG IVPB SCH (17:34)
[2022-03-13] MEDS: Meropenem 1 GM in Sodium Chloride 0.9% 100 ML IVPB SCH (19:37)
[2022-03-13] MEDS: Atorvastatin Calcium 40 MG TAB PO SCH (21:44)
[2022-03-14] MEDS: Morphine 2 MG/ML VIAL SLOW IVP PRN ×6 (00:23→23:36)
[2022-03-14] MEDS: Ondansetron PF 4 MG/2 ML Vial IVP PRN ×4 (00:23→19:02)
[2022-03-14 03:47] LABS: Hemoglobin 9.5 g/dL (13.5-17.5); Mean Corpuscular HGB CONC 33.2 g/dL (32.0-36.0); Mean Corpuscular Volume 78.4 fl (81.2-95.1); Mean Platelet Volume 11.2 fl (7.4-10.4); Platelet Count 232 10x3/uL (150-450); Red Blood Cell (RBC) Count 3.65 10x6/uL (4.32-5.72); White Blood Cell (WBC) Count 3.5 10x3/uL (3.5-10.5)
[2022-03-14 03:48] LABS: MDiff Complete? YES
[2022-03-14 04:00] LABS: Anion Gap 15 mmol/L (10-20); BUN (Urea Nitrogen) 21 mg/dL (8.9-20.6); Calc. Creatinine Clearance 54 mL/min (70-130); Calcium 7.6 mg/dL (7.8-10.44); Carbon Dioxide 23 mmol/L (22-29); Chloride 96 mmol/L (98-107); Estimated GFR 28; Glucose 108 mg/dL (70-105); Potassium 3.8 mmol/L (3.5-5.1); Sodium 130 mmol/L (136-145)
[2022-03-14 04:08] LABS: Band 15 % (5-11); Lymphocytes 28 % (21-51); Monocytes 5 % (0-10); Myelocyte 1 % (0-0); Neutrophil 51 % (42-75)
[2022-03-14 04:09] LABS: Microcytosis SLIGHT = 6-15 cells (100X) (0-5/hpf); Platelet Morphology Comment Appears Adequate
[2022-03-14] MEDS: Meropenem 1 GM in Sodium Chloride 0.9% 100 ML IVPB SCH ×2 (04:15→23:10)
[2022-03-14] MEDS: Ipratropium/Albuterol 3 ML NEB NEB PRN ×2 (04:30→07:05)
[2022-03-14] MEDS: Acetaminophen 325 MG TAB PO PRN (06:30)
[2022-03-14] MEDS: Mometasone/Formoterol 200/5 60 PUFF INH SCH ×2 (07:15→19:43)
[2022-03-14] MEDS: DULoxetine 30 MG CAP PO SCH (09:33)
[2022-03-14] MEDS: Aripiprazole 10 MG TAB PO SCH (09:35)
[2022-03-14] MEDS: Carvedilol 6.25 MG TAB PO SCH ×2 (09:36→17:28)
[2022-03-14] MEDS: Aspirin 81 mg Enteric Coated Tablet PO SCH (09:36)
[2022-03-14] MEDS: TICAGRELOR 90 MG TABLET PO SCH ×2 (09:36→23:11)
[2022-03-14] MEDS: Gabapentin 100 MG CAP PO SCH ×3 (09:36→23:10)
[2022-03-14] MEDS ORDERED: Sodium Chloride 0.9% 1,000 ML IV SCH ×2 (09:45)
[2022-03-14] MEDS: Lantus 1000 UNITS/10 ML VIAL SC SCH ×2 (09:50→23:21)
[2022-03-14] MEDS: Loperamide HCl 2 MG CAP PO PRN (13:54)
[2022-03-14 18:34] LABS: Vancomycin, Trough 21.5 ug/mL
[2022-03-14] MEDS: Atorvastatin Calcium 40 MG TAB PO SCH (23:11)
[2022-03-15 04:34] LABS: Hemoglobin 8.9 g/dL (13.5-17.5); Mean Corpuscular HGB CONC 32.8 g/dL (32.0-36.0); Mean Corpuscular Hemoglobin 25.9 pg (27.0-33.0); Mean Corpuscular Volume 78.8 fl (81.2-95.1); Platelet Count 238 10x3/uL (150-450); RBC Distribution Width 14.3 % (11.5-14.5); Red Blood Cell (RBC) Count 3.44 10x6/uL (4.32-5.72); White Blood Cell (WBC) Count 3.2 10x3/uL (3.5-10.5)
[2022-03-15 04:41] LABS: Anion Gap 13 mmol/L (10-20); BUN (Urea Nitrogen) 26 mg/dL (8.9-20.6); Calc. Creatinine Clearance 38 mL/min (70-130); Calcium 7.8 mg/dL (7.8-10.44); Carbon Dioxide 24 mmol/L (22-29); Chloride 98 mmol/L (98-107); Estimated GFR 18; Glucose 83 mg/dL (70-105); Potassium 3.7 mmol/L (3.5-5.1); Sodium 131 mmol/L (136-145)
[2022-03-15 04:53] LABS: MDiff Complete? YES
[2022-03-15] MEDS: Morphine 2 MG/ML VIAL SLOW IVP PRN (05:38)
[2022-03-15] MEDS: Ondansetron PF 4 MG/2 ML Vial IVP PRN (05:38)
[2022-03-15 05:41] LABS: Band 9 % (5-11); Eosinophils 2 % (0-10); Lymphocytes 28 % (21-51); Monocytes 8 % (0-10); Neutrophil 53 % (42-75)
[2022-03-15 05:45] LABS: Anisocytosis SLIGHT = 6-15 cells (100X) (0-5/hpf); Hypochromia SLIGHT = 6-15 cells (100X) (0-5/hpf); Microcytosis SLIGHT = 6-15 cells (100X) (0-5/hpf)
[2022-03-15 05:46] LABS: Ovalocytes SLIGHT = 2-5 cells (100X) (0-1/hpf); Platelet Morphology Comment Appears Adequate
[2022-03-15] MEDS: traMADol HCl 50 MG TAB PO PRN ×2 (06:40→16:37)
[2022-03-15] MEDS: Mometasone/Formoterol 200/5 60 PUFF INH SCH ×2 (07:30→19:40)
[2022-03-15] MEDS: VANCOMYCIN 1.25 GM/250 ML BAG 1.25 GM in Premix Bag 1 BAG IVPB SCH (07:35)
[2022-03-15] MEDS: Aspirin 81 mg Enteric Coated Tablet PO SCH (08:31)
[2022-03-15] MEDS: Gabapentin 100 MG CAP PO SCH ×3 (08:31→22:13)
[2022-03-15] MEDS: DULoxetine 30 MG CAP PO SCH (08:31)
[2022-03-15] MEDS: Aripiprazole 10 MG TAB PO SCH (08:31)
[2022-03-15] MEDS: TICAGRELOR 90 MG TABLET PO SCH ×2 (08:31→22:13)
[2022-03-15] MEDS: Lantus 1000 UNITS/10 ML VIAL SC SCH ×2 (08:32→22:14)
[2022-03-15] MEDS: Carvedilol 6.25 MG TAB PO SCH ×2 (08:32→17:25)
[2022-03-15] MEDS: Meropenem 1 GM in Sodium Chloride 0.9% 100 ML IVPB SCH ×2 (08:32→22:14)
[2022-03-15] MEDS ORDERED: Furosemide 40 MG/4 ML VIAL SLOW IVP SCH (09:00)
[2022-03-15] MEDS ORDERED: Sodium Bicarbonate Tab 325 MG TAB PO SCH (10:30)
[2022-03-15 18:06] LABS: Creatinine, Urine 235.84 mg/dL (63-166)
[2022-03-15] MEDS: Ipratropium/Albuterol 3 ML NEB NEB PRN (20:54)
[2022-03-15] MEDS ORDERED: Doxycycline 100 MG in Sodium Chloride 0.9% 100 ML IVPB SCH (21:00)
[2022-03-15] MEDS: Sodium Bicarbonate Tab 325 MG TAB PO SCH (22:13)
[2022-03-15] MEDS: Atorvastatin Calcium 40 MG TAB PO SCH (22:13)
[2022-03-15 23:41] LABS: HBCM Index 0.07 S/CO (0-0.79); Hep A IgM AB Non-Reactive (NonReactive); Hep A IgM S/CO 0.11 S/CO (0-0.79); Hep C IgG Ab Non-Reactive (NonReactive); Hep C Index 0.16 S/CO (0-0.79); Hepatitis B Core IgM Abs Non-Reactive (NonReactive)
[2022-03-16 02:38] LABS: HBSAg Index 0.21 S/CO (0-0.99); Hep B Surf Ag Non-Reactive S/CO (NonReactive)
[2022-03-16 04:22] LABS: Hemoglobin 8.7 g/dL (13.5-17.5); Mean Corpuscular HGB CONC 32.5 g/dL (32.0-36.0); Mean Corpuscular Hemoglobin 25.6 pg (27.0-33.0); Mean Corpuscular Volume 78.8 fl (81.2-95.1); Mean Platelet Volume 10.9 fl (7.4-10.4); Platelet Count 234 10x3/uL (150-450); RBC Distribution Width 14.5 % (11.5-14.5); White Blood Cell (WBC) Count 3.6 10x3/uL (3.5-10.5)
[2022-03-16 04:24] LABS: Anion Gap 17 mmol/L (10-20); BUN (Urea Nitrogen) 30 mg/dL (8.9-20.6); Calc. Creatinine Clearance 31 mL/min (70-130); Calcium 7.8 mg/dL (7.8-10.44); Carbon Dioxide 22 mmol/L (22-29); Chloride 99 mmol/L (98-107); Estimated GFR 14; Glucose 105 mg/dL (70-105); Potassium 3.7 mmol/L (3.5-5.1); Sodium 134 mmol/L (136-145)
[2022-03-16 04:25] LABS: MDiff Complete? YES
[2022-03-16] MEDS: Meropenem 1 GM in Sodium Chloride 0.9% 100 ML IVPB SCH ×3 (05:11→22:42)
[2022-03-16] MEDS: Morphine 2 MG/ML VIAL SLOW IVP PRN ×2 (06:38→23:25)
[2022-03-16 06:51] LABS: Band 8 % (5-11); Eosinophils 1 % (0-10); Lymphocytes 19 % (21-51); Monocytes 4 % (0-10); Neutrophil 66 % (42-75); Reactive Lymphocytes 1 % (0-10)
[2022-03-16 06:53] LABS: Anisocytosis SLIGHT = 6-15 cells (100X) (0-5/hpf); Hypochromia SLIGHT = 6-15 cells (100X) (0-5/hpf); Macrocytosis SLIGHT = 6-15 cells (100X) (0-5/hpf); Microcytosis SLIGHT = 6-15 cells (100X) (0-5/hpf); Platelet Morphology Comment Appears Adequate
[2022-03-16] MEDS: Ipratropium/Albuterol 3 ML NEB NEB PRN (07:40)
[2022-03-16] MEDS: Mometasone/Formoterol 200/5 60 PUFF INH SCH ×2 (07:48→19:46)
[2022-03-16] MEDS: Lantus 1000 UNITS/10 ML VIAL SC SCH ×2 (09:19→22:37)
[2022-03-16] MEDS: Gabapentin 100 MG CAP PO SCH ×3 (09:21→22:36)
[2022-03-16] MEDS: Aripiprazole 10 MG TAB PO SCH (09:21)
[2022-03-16] MEDS: Carvedilol 6.25 MG TAB PO SCH ×2 (09:22→18:00)
[2022-03-16] MEDS: DULoxetine 30 MG CAP PO SCH (09:22)
[2022-03-16] MEDS: TICAGRELOR 90 MG TABLET PO SCH ×2 (09:22→22:36)
[2022-03-16] MEDS: Sodium Bicarbonate Tab 325 MG TAB PO SCH ×2 (09:23→22:36)
[2022-03-16] MEDS: Aspirin 81 mg Enteric Coated Tablet PO SCH (09:23)
[2022-03-16] MEDS: Sodium Chloride 0.9% 1,000 ML IV SCH (10:00)
[2022-03-16] MEDS: Atorvastatin Calcium 40 MG TAB PO SCH (22:36)
[2022-03-17] MEDS ORDERED: Meropenem 1 GM in Sodium Chloride 0.9% 100 ML IVPB SCH (03:00)
[2022-03-17 04:48] LABS: Hemoglobin 9.1 g/dL (13.5-17.5); Mean Corpuscular HGB CONC 33.3 g/dL (32.0-36.0); Mean Corpuscular Hemoglobin 26.1 pg (27.0-33.0); Mean Corpuscular Volume 78.4 fl (81.2-95.1); Mean Platelet Volume 10.9 fl (7.4-10.4); Platelet Count 262 10x3/uL (150-450); RBC Distribution Width 14.5 % (11.5-14.5); Red Blood Cell (RBC) Count 3.48 10x6/uL (4.32-5.72)
[2022-03-17 04:49] LABS: MDiff Complete? YES
[2022-03-17 04:51] LABS: Anion Gap 17 mmol/L (10-20); BUN (Urea Nitrogen) 35 mg/dL (8.9-20.6); Calc. Creatinine Clearance 29 mL/min (70-130); Carbon Dioxide 22 mmol/L (22-29); Chloride 98 mmol/L (98-107); Estimated GFR 14; Glucose 129 mg/dL (70-105); Potassium 3.7 mmol/L (3.5-5.1); Sodium 133 mmol/L (136-145)
[2022-03-17 06:24] LABS: Band 5 % (5-11); Eosinophils 1 % (0-10); Lymphocytes 12 % (21-51); Monocytes 6 % (0-10); Neutrophil 73 % (42-75); Reactive Lymphocytes 3 % (0-10)
[2022-03-17 06:26] LABS: Microcytosis SLIGHT = 6-15 cells (100X) (0-5/hpf)
[2022-03-17 06:27] LABS: Hypochromia SLIGHT = 6-15 cells (100X) (0-5/hpf); Ovalocytes SLIGHT = 2-5 cells (100X) (0-1/hpf); Platelet Morphology Comment Appears Adequate; Schistocytes SLIGHT = 2-5 cells (100X) (0-1/hpf)
[2022-03-17] MEDS: Ipratropium/Albuterol 3 ML NEB NEB PRN ×2 (08:00→19:27)
[2022-03-17] MEDS: Mometasone/Formoterol 200/5 60 PUFF INH SCH ×2 (08:08→19:28)
[2022-03-17] MEDS: Sodium Bicarbonate Tab 325 MG TAB PO SCH ×2 (09:04→21:37)
[2022-03-17] MEDS: Aspirin 81 mg Enteric Coated Tablet PO SCH (09:04)
[2022-03-17] MEDS: TICAGRELOR 90 MG TABLET PO SCH ×2 (09:04→21:37)
[2022-03-17] MEDS: Carvedilol 6.25 MG TAB PO SCH ×2 (09:04→18:04)
[2022-03-17] MEDS: Gabapentin 100 MG CAP PO SCH ×3 (09:05→21:36)
[2022-03-17] MEDS: DULoxetine 30 MG CAP PO SCH (09:05)
[2022-03-17] MEDS: Lantus 1000 UNITS/10 ML VIAL SC SCH ×2 (09:06→21:42)
[2022-03-17] MEDS: Sodium Chloride 0.9% 1,000 ML IV SCH ×2 (09:06→12:19)
[2022-03-17] MEDS: Aripiprazole 10 MG TAB PO SCH (09:10)
[2022-03-17] MEDS: Meropenem 500 MG in Sodium Chloride 0.9% 100 ML IVPB SCH (14:58)
[2022-03-17] MEDS: Nystatin 500,000 UNITS/5 ML UDCUP SSW SCH ×2 (18:04→21:37)
[2022-03-17] MEDS: Atorvastatin Calcium 40 MG TAB PO SCH (21:36)
[2022-03-18] MEDS: Meropenem 500 MG in Sodium Chloride 0.9% 100 ML IVPB SCH (02:57)
[2022-03-18] MEDS: traMADol HCl 50 MG TAB PO PRN (06:09)
[2022-03-18 06:18] LABS: #Eosinphils 0.1 10x3/uL (0.0-0.5); #Monocytes 0.4 10x3/uL (0.0-1.1); #Neutrophils 3.9 10x3/uL (1.5-8.4); %Basophils 0.2 % (0.0-2.0); %Eosinophils 2.1 % (0.0-6.0); %Lymphocytes 12.5 % (18.0-47.0); %Monocytes 7.6 % (0.0-10.0); %Neutrophils 76.4 % (40.0-75.0); Hemoglobin 9.3 g/dL (13.5-17.5); Mean Corpuscular HGB CONC 33.7 g/dL (32.0-36.0); Mean Corpuscular Hemoglobin 26.3 pg (27.0-33.0); Mean Corpuscular Volume 78.2 fl (81.2-95.1); Mean Platelet Volume 10.5 fl (7.4-10.4); Platelet Count 348 10x3/uL (150-450); RBC Distribution Width 14.4 % (11.5-14.5); Red Blood Cell (RBC) Count 3.53 10x6/uL (4.32-5.72); White Blood Cell (WBC) Count 5.1 10x3/uL (3.5-10.5)
[2022-03-18 06:21] LABS: ALT (SGPT) 10 U/L (8-55); AST (SGOT) 19 U/L (5-34); Albumin 2.4 g/dL (3.5-5.0); Alkaline Phosphatase 181 U/L (40-110); Anion Gap 19 mmol/L (10-20); BUN (Urea Nitrogen) 39 mg/dL (8.9-20.6); Bilirubin, Total 0.8 mg/dL (0.2-1.2); Calc. Creatinine Clearance 30 mL/min (70-130); Calcium 8.1 mg/dL (7.8-10.44); Carbon Dioxide 20 mmol/L (22-29); Chloride 102 mmol/L (98-107); Estimated GFR 14; Globulin 4.4 g/dL (2.4-3.5); Glucose 157 mg/dL (70-105); Potassium 4.3 mmol/L (3.5-5.1); Protein, Total 6.8 g/dL (6.0-8.3); Sodium 137 mmol/L (136-145)
[2022-03-18] MEDS: Ipratropium/Albuterol 3 ML NEB NEB PRN ×2 (07:35→19:14)
[2022-03-18] MEDS: Mometasone/Formoterol 200/5 60 PUFF INH SCH ×2 (07:45→19:17)
[2022-03-18] MEDS: Lantus 1000 UNITS/10 ML VIAL SC SCH ×2 (09:00→20:57)
[2022-03-18] MEDS: DULoxetine 30 MG CAP PO SCH (09:36)
[2022-03-18] MEDS: TICAGRELOR 90 MG TABLET PO SCH ×2 (09:36→20:43)
[2022-03-18] MEDS: Aripiprazole 10 MG TAB PO SCH (09:37)
[2022-03-18] MEDS: Nystatin 500,000 UNITS/5 ML UDCUP SSW SCH ×4 (09:37→20:43)
[2022-03-18] MEDS: Sodium Bicarbonate Tab 325 MG TAB PO SCH ×2 (09:37→20:43)
[2022-03-18] MEDS: Gabapentin 100 MG CAP PO SCH ×3 (09:37→20:43)
[2022-03-18] MEDS: Carvedilol 6.25 MG TAB PO SCH ×2 (09:37→19:48)
[2022-03-18] MEDS: Aspirin 81 mg Enteric Coated Tablet PO SCH (09:38)
[2022-03-18] MEDS: Atorvastatin Calcium 40 MG TAB PO SCH (20:43)
[2022-03-18] MEDS ORDERED: Sodium Bicarbonate 150 MEQ in Dextrose 5% in Water 1,000 ML IV SCH (22:00)
[2022-03-19 04:30] LABS: #Eosinphils 0.1 10x3/uL (0.0-0.5); #Monocytes 0.4 10x3/uL (0.0-1.1); %Basophils 0.5 % (0.0-2.0); %Eosinophils 2.8 % (0.0-6.0); %Lymphocytes 11.5 % (18.0-47.0); %Monocytes 8.8 % (0.0-10.0); %Neutrophils 75.9 % (40.0-75.0); Hemoglobin 8.9 g/dL (13.5-17.5); Mean Corpuscular HGB CONC 33.8 g/dL (32.0-36.0); Mean Corpuscular Hemoglobin 26.6 pg (27.0-33.0); Mean Corpuscular Volume 78.7 fl (81.2-95.1); Mean Platelet Volume 10.7 fl (7.4-10.4); Platelet Count 360 10x3/uL (150-450); RBC Distribution Width 14.1 % (11.5-14.5); Red Blood Cell (RBC) Count 3.34 10x6/uL (4.32-5.72)
[2022-03-19 04:48] LABS: ALT (SGPT) 9 U/L (8-55); AST (SGOT) 14 U/L (5-34); Albumin 2.3 g/dL (3.5-5.0); Alkaline Phosphatase 149 U/L (40-110); Anion Gap 17 mmol/L (10-20); BUN (Urea Nitrogen) 39 mg/dL (8.9-20.6); Bilirubin, Total 0.8 mg/dL (0.2-1.2); Calc. Creatinine Clearance 37 mL/min (70-130); Calcium 8.2 mg/dL (7.8-10.44); Carbon Dioxide 25 mmol/L (22-29); Chloride 102 mmol/L (98-107); Estimated GFR 18; Globulin 4.2 g/dL (2.4-3.5); Glucose 208 mg/dL (70-105); Magnesium 1.7 mg/dL (1.6-2.6); Protein, Total 6.5 g/dL (6.0-8.3); Sodium 140 mmol/L (136-145)
[2022-03-19] MEDS: Mometasone/Formoterol 200/5 60 PUFF INH SCH ×2 (07:19→19:24)
[2022-03-19] MEDS: Ipratropium/Albuterol 3 ML NEB NEB PRN ×2 (07:25→19:15)
[2022-03-19] MEDS: Lantus 1000 UNITS/10 ML VIAL SC SCH ×2 (08:55→21:12)
[2022-03-19] MEDS: Carvedilol 6.25 MG TAB PO SCH ×2 (08:59→17:47)
[2022-03-19] MEDS: Aripiprazole 10 MG TAB PO SCH (09:02)
[2022-03-19] MEDS: Sodium Bicarbonate Tab 325 MG TAB PO SCH ×2 (09:02→21:05)
[2022-03-19] MEDS: Thiamine 100 MG TAB PO SCH (09:02)
[2022-03-19] MEDS: Aspirin 81 mg Enteric Coated Tablet PO SCH (09:03)
[2022-03-19] MEDS: Folic Acid/Vit B Comp W-C PO SCH (09:03)
[2022-03-19] MEDS: Nystatin 500,000 UNITS/5 ML UDCUP SSW SCH ×4 (09:03→21:05)
[2022-03-19] MEDS: DULoxetine 30 MG CAP PO SCH (09:03)
[2022-03-19] MEDS: TICAGRELOR 90 MG TABLET PO SCH ×2 (09:03→21:05)
[2022-03-19] MEDS: Gabapentin 100 MG CAP PO SCH ×3 (09:03→21:13)
[2022-03-19] MEDS ORDERED: Lactated Ringer's 1,000 ML IV SCH (13:30)
[2022-03-19] MEDS: Atorvastatin Calcium 40 MG TAB PO SCH (21:04)
[2022-03-19] MEDS: HumaLOG 300 UNITS/3 ML VIAL SC PRN (21:06)
[2022-03-20 05:17] LABS: #Eosinphils 0.2 10x3/uL (0.0-0.5); #Monocytes 0.5 10x3/uL (0.0-1.1); #Neutrophils 2.8 10x3/uL (1.5-8.4); %Basophils 0.7 % (0.0-2.0); %Eosinophils 3.9 % (0.0-6.0); %Monocytes 12.3 % (0.0-10.0); %Neutrophils 68.6 % (40.0-75.0); Hemoglobin 10.2 g/dL (13.5-17.5); Mean Corpuscular HGB CONC 32.7 g/dL (32.0-36.0); Mean Corpuscular Hemoglobin 25.9 pg (27.0-33.0); Mean Corpuscular Volume 79.2 fl (81.2-95.1); Platelet Count 371 10x3/uL (150-450); Red Blood Cell (RBC) Count 3.94 10x6/uL (4.32-5.72); White Blood Cell (WBC) Count 4.1 10x3/uL (3.5-10.5)
[2022-03-20 05:43] LABS: ALT (SGPT) 10 U/L (8-55); AST (SGOT) 19 U/L (5-34); Albumin 2.4 g/dL (3.5-5.0); Alkaline Phosphatase 139 U/L (40-110); Anion Gap 16 mmol/L (10-20); BUN (Urea Nitrogen) 31 mg/dL (8.9-20.6); Calc. Creatinine Clearance 54 mL/min (70-130); Calcium 8.6 mg/dL (7.8-10.44); Carbon Dioxide 23 mmol/L (22-29); Chloride 101 mmol/L (98-107); Estimated GFR 28; Glucose 233 mg/dL (70-105); Protein, Total 7.4 g/dL (6.0-8.3); Sodium 136 mmol/L (136-145)
[2022-03-20] MEDS: HumaLOG 300 UNITS/3 ML VIAL SC PRN ×3 (07:15→18:13)
[2022-03-20] MEDS: Mometasone/Formoterol 200/5 60 PUFF INH SCH ×2 (07:20→19:36)
[2022-03-20] MEDS: Aripiprazole 10 MG TAB PO SCH (10:05)
[2022-03-20] MEDS: DULoxetine 30 MG CAP PO SCH (10:05)
[2022-03-20] MEDS: Aspirin 81 mg Enteric Coated Tablet PO SCH (10:05)
[2022-03-20] MEDS: Gabapentin 100 MG CAP PO SCH ×3 (10:06→21:26)
[2022-03-20] MEDS: Carvedilol 6.25 MG TAB PO SCH (10:06)
[2022-03-20] MEDS: TICAGRELOR 90 MG TABLET PO SCH ×2 (10:07→21:14)
[2022-03-20] MEDS: Folic Acid/Vit B Comp W-C PO SCH (10:07)
[2022-03-20] MEDS: Lantus 1000 UNITS/10 ML VIAL SC SCH (10:07)
[2022-03-20] MEDS: Thiamine 100 MG TAB PO SCH (10:13)
[2022-03-20] MEDS: Nystatin 500,000 UNITS/5 ML UDCUP SSW SCH ×4 (14:00→21:15)
[2022-03-20] MEDS ORDERED: Carvedilol 12.5 MG TAB PO SCH (17:00)
[2022-03-20] MEDS: Morphine 2 MG/ML VIAL SLOW IVP PRN ×2 (18:51→23:04)
[2022-03-20] MEDS ORDERED: Lantus 1000 UNITS/10 ML VIAL SC SCH (21:00)
[2022-03-20] MEDS: Atorvastatin Calcium 40 MG TAB PO SCH (21:14)
[2022-03-20] MEDS: Loperamide HCl 2 MG CAP PO PRN (21:15)
[2022-03-21] MEDS ORDERED: Diazepam 5 MG TAB PO SCH (03:45)
[2022-03-21 05:03] LABS: #Eosinphils 0.2 10x3/uL (0.0-0.5); #Monocytes 0.5 10x3/uL (0.0-1.1); #Neutrophils 2.3 10x3/uL (1.5-8.4); %Basophils 0.6 % (0.0-2.0); %Eosinophils 4.4 % (0.0-6.0); %Monocytes 12.7 % (0.0-10.0); %Neutrophils 63.2 % (40.0-75.0); Hemoglobin 9.6 g/dL (13.5-17.5); Mean Corpuscular HGB CONC 33.2 g/dL (32.0-36.0); Mean Corpuscular Hemoglobin 26.4 pg (27.0-33.0); Mean Corpuscular Volume 79.6 fl (81.2-95.1); Mean Platelet Volume 10.3 fl (7.4-10.4); Platelet Count 379 10x3/uL (150-450); RBC Distribution Width 13.8 % (11.5-14.5); Red Blood Cell (RBC) Count 3.63 10x6/uL (4.32-5.72); White Blood Cell (WBC) Count 3.6 10x3/uL (3.5-10.5)
[2022-03-21 05:04] LABS: ALT (SGPT) 9 U/L (8-55); AST (SGOT) 18 U/L (5-34); Albumin 2.6 g/dL (3.5-5.0); Alkaline Phosphatase 151 U/L (40-110); Anion Gap 14 mmol/L (10-20); BUN (Urea Nitrogen) 24 mg/dL (8.9-20.6); Bilirubin, Total 1.1 mg/dL (0.2-1.2); Calc. Creatinine Clearance 72 mL/min (70-130); Calcium 8.8 mg/dL (7.8-10.44); Carbon Dioxide 30 mmol/L (22-29); Chloride 101 mmol/L (98-107); Estimated GFR 40; Globulin 4.7 g/dL (2.4-3.5); Glucose 170 mg/dL (70-105); Potassium 3.7 mmol/L (3.5-5.1); Protein, Total 7.3 g/dL (6.0-8.3); Sodium 141 mmol/L (136-145)
[2022-03-21 05:28] VITALS: BP 136/92; TEMP 97.9
[2022-03-21 08:37] LABS: HIV-1 Quantitative, RNA PCR <20 copies/mL (.)
[2022-03-21] MEDS ORDERED: DULoxetine 30 MG CAP PO SCH (09:00)
[2022-03-22 14:37] LABS: Cytoplasmic (C-ANCA) <1:20 titer (Neg:<1:20); Myeloperoxidase AutoAbs <0.2 units (0.0-0.9); Perinuclear (P-ANCA) <1:20 titer (Neg:<1:20); Proteinase-3 AutoAbs Less than 0.2 units (0.0-0.9)
== END 2022-03-21 06:30 | disposition left against medical advice (07) | DRG 871 ==
LOC: CSHERS 08:35 → CSHTELE 14:35 → OBSVTOIN 17:19
PROVIDERS: ADMIT Internal Medicine; ATTEND Family Medicine
DX: A41.9 Sepsis, unspecified organism (principal); J12.3 Human metapneumovirus pneumonia; J96.21 Acute and chronic respiratory failure with hypoxia; N17.9 Acute kidney failure, unspecified; L02.811 Cutaneous abscess of head [any part, except face]; R04.2 Hemoptysis; N18.4 Chronic kidney disease, stage 4 (severe); I50.22 Chronic systolic (congestive) heart failure; I13.0 Hypertensive heart and chronic kidney disease with heart failure and stage 1 through stage 4 chronic kidney disease, or unspecified chronic kidney disease; J44.0 Chronic obstructive pulmonary disease with (acute) lower respiratory infection; R65.20 Severe sepsis without septic shock; E78.5 Hyperlipidemia, unspecified; I25.10 Atherosclerotic heart disease of native coronary artery without angina pectoris; D63.1 Anemia in chronic kidney disease; M79.7 Fibromyalgia; Z77.22 Contact with and (suspected) exposure to environmental tobacco smoke (acute) (chronic); F31.9 Bipolar disorder, unspecified; E10.22 Type 1 diabetes mellitus with diabetic chronic kidney disease; E10.40 Type 1 diabetes mellitus with diabetic neuropathy, unspecified; Z20.822 Contact with and (suspected) exposure to COVID-19; Z95.5 Presence of coronary angioplasty implant and graft; Z99.81 Dependence on supplemental oxygen; Z88.8 Allergy status to other drugs, medicaments and biological substances; Z79.899 Other long term (current) drug therapy; Z79.82 Long term (current) use of aspirin; Z98.890 Other specified postprocedural states; Z90.49 Acquired absence of other specified parts of digestive tract; Z86.711 Personal history of pulmonary embolism; Z83.3 Family history of diabetes mellitus; Z80.0 Family history of malignant neoplasm of digestive organs
CPT/HCPCS: 36415; 36416; 70450; 71045; 71046; 71250; 76770; 80048; 80053; 80074; 80202; 80306; 80307; 81003; 81015; 82553; 82570; 83516; 83605; 83735; 83880; 84100; 84156; 84484; 85025; 86037; 86140; 86141; 86593; 86780; 87040; 87086; 87324; 87389; 87449; 87536; 87633; 87811; 87899; 93005; 93306; 94640; 94664; 94760; 94799; 96365; 96366; 96367; 96375; 96376; G0378; J1200; J1815; J1885; J2185; J2272; J2405; J2543; J2550; J2765; J3370; J3490; J7050; J7070; J7120; J7620

== ENCOUNTER 2022-12-09 16:05 | Emergency (ER) | payer OTHER ==
[~2022-12-09 16:05] MED LIST: Iopamidol 370 76% 100 ML VIAL ONE
[2022-12-09] MEDS ORDERED: fentaNYL 50 mcg/mL 1 mL Vial ONE (17:32)
[2022-12-09 17:33] LABS: #Basophils 0.1 10x3/uL (0.0-0.2); #Eosinphils 0.6 10x3/uL (0.0-0.5); #Monocytes 0.4 10x3/uL (0.0-1.1); %Basophils 0.9 % (0.0-2.0); %Eosinophils 11.4 % (0.0-6.0); %Lymphocytes 27.4 % (18.0-47.0); %Monocytes 7.5 % (0.0-10.0); %Neutrophils 52.3 % (40.0-75.0); Hematocrit 26.6 % (38.8-50.0); Hemoglobin 8.7 g/dL (13.5-17.5); Mean Corpuscular HGB CONC 32.7 g/dL (32.0-36.0); Mean Corpuscular Hemoglobin 24.6 pg (27.0-33.0); Mean Corpuscular Volume 75.1 fl (81.2-95.1); Mean Platelet Volume 10.3 fl (7.4-10.4); Platelet Count 284 10x3/uL (150-450); RBC Distribution Width 16.3 % (11.5-14.5); Red Blood Cell (RBC) Count 3.54 10x6/uL (4.32-5.72); White Blood Cell (WBC) Count 5.6 10x3/uL (3.5-10.5)
[2022-12-09 17:44] LABS: ALT (SGPT) 14 U/L (8-55); AST (SGOT) 11 U/L (5-34); Albumin 3.3 g/dL (3.5-5.0); Alkaline Phosphatase 152 U/L (40-110); Anion Gap 13 mmol/L (10-20); BUN (Urea Nitrogen) 9 mg/dL (8.9-20.6); Bilirubin, Total 0.7 mg/dL (0.2-1.2); Calc. Creatinine Clearance 0 mL/min (70-130); Calcium 8.9 mg/dL (7.8-10.44); Carbon Dioxide 26 mmol/L (22-29); Chloride 99 mmol/L (98-107); Estimated GFR 114; Globulin 3.8 g/dL (2.4-3.5); Glucose 178 mg/dL (70-105); Magnesium 1.5 mg/dL (1.6-2.6); Protein, Total 7.1 g/dL (6.0-8.3); Sodium 134 mmol/L (136-145)
[2022-12-09 17:50] LABS: Troponin I Less than 0.010 ng/mL (< 0.028)
== END 2022-12-09 19:04 | disposition home or self-care (01) ==
LOC: CSHERS 16:05
DX: R07.9 Chest pain, unspecified (principal); J44.9 Chronic obstructive pulmonary disease, unspecified; I11.0 Hypertensive heart disease with heart failure; I50.9 Heart failure, unspecified; E78.5 Hyperlipidemia, unspecified; E66.9 Obesity, unspecified; E10.40 Type 1 diabetes mellitus with diabetic neuropathy, unspecified
CPT/HCPCS: 36415; 71275; 80053; 83735; 84484; 85025; 93005; 93010; 96374; J3010; Q9967